=== PATIENT | female | born 1985 | race Caucasian/White ===

== ENCOUNTER 2022-11-23 13:55 | Emergency (ER) | payer OTHER ==
--- OUTSIDE RECORDS SUMMARY | 2022-11-23 14:00 | XMS REPORT | Continuity of Care Document ---
:1985 Author Organization [facility] t Address [address] [place] [address] Care Team Providers Name Role Phone Pcp, Patient Does Not Have A Primary Care Physician [phone] Luis Vernon Attending Clinician Unavailable Yovana Velazquez Attending Clinician Unavailable Katrin Reynolds Attending Clinician Unavailable Ekwo, Naty Attending Clinician Unavailable [facility] Attending Clinician Unavailable Unknown, Attending Attending Clinician Unavailable EbrahiKian Myles Attending Clinician KIAN JIMENEZ Attending Clinician Unavailable Doctor Unassigned, Landrum Attending Clinician Unavailable ARLENE BASHIR Attending Clinician Unavailable HERNANDO DELONG Attending Clinician Unavailable Hernando Espitia Attending Clinician Provider, [facility] Attending Clinician Unavailable Berny Mcclellan Attending Clinician [phone] BERNY MITCHELL Attending Clinician Unavailable King MARCEL MD, Sd Sequeira Attending Clinician CHRISSIE UPTON Attending Clinician Unavailable Chrissie Looney Attending Clinician CHIP QUAN Attending Clinician Unavailable Ekwo, Naty Admitting Clinician Unavailable Payers Payer Name Policy Type Policy Number Effective Date Expiration Date Martha Oliva [id number] 2020 [facility] 00:00:00 [facility] Problems Condition Condition Condition Status Onset Resolution Last Treating Co mments Source Name Details Category Date Date Treatment Clinician Date [id number] Seasonal Problem Comm on allergies [facility] [id number] Depression Problem Co mmon with [facility] anxiety [facility] [id number] Chronic Problem Common fatigue [facility] [id number] Vitamin D Problem Comm on deficiency [facility] No known No known Disease Unive rs active active ity of problems problems [facility] Allergies, Adverse Reactions, Alerts Allergy Allergy Status Severity Reaction(s) Onset Inactive Treating Comm ents Source Name Type Date Date Clinician No Known DA Active U 2019-05 [facility] No Known DA Active U 2019-05 [facility]ie 06-17 [facility] NO KNOWN Drug Active Univers ALLERGIE Class ity of S [facility] Social History Social Habit Start Date Stop Date Quantity Comments Source History of Tobacco Common [facility] - Use [facility] Gender identity [facility] Exposure to 2022-09-11 2022-09-21 Not sure [facility] SARS-CoV-2 (event) 00:00:00 14:12:00 [facility] Tobacco use and 2022-04-24 2022-04-24 Smokeless Universit y of exposure 00:00:00 00:00:00 tobacco non-user [facility] History of Social 2019-07-29 2019-07-[address] function 00:00:00 00:00:00 Hospital Sex Assigned At [birth year] [facility] 00:00:00 00:00:00 Hospital Smoking Status Start Date Stop Date Source Tobacco smoking consumption Univ [facility] Never smoked tobacco [facility] Medications Ordered Filled Start Stop Current Ordering Indication Dosage Frequency Signature Comments Components Source Medication Medication Date Date Medication? Clinician (SIG) Name Name dexamethaso 2022- No [id number] 10mg Univers ne 09-21 ity of (DECADRON 21:00: 19:57 [place] PHOSPHATE) 00 :00 Medical injection Branch 10 mg dexamethaso 2022- No [id number] 10mg 10 mg, Univers ne 09-21 Intramuscu ity of (DECADRON 21:00: 19:57 lar, ONCE, [place] PHOSPHATE) 00 :00 1 dose, On Med ical injection Carrie Branch 10 mg 09/21/22 at 1600, Routine ketorolac 2022- No [id number] 30mg Un jamin (TORADOL) 09-21 ity of injection 20:45: 19:58 [place] 30 mg 00 :00 Medical Branch ketorolac 2022- No [id number] 30mg 30 mg, Univers (TORADOL) 09-21 Intramuscu ity of injection 20:45: 19:58 lar, ONCE, [place] 30 mg 00 :00 1 dose, On Medical Carrie Branch 09/21/22 at 1545, Routine methocarbam 2022- Yes [id number] 750mg Take 1 Univers oL 09-21-08 tablet by ity of (ROBAXIN-75 00:00: 04:59 [place] 4 [place] 750 mg 00 :00 (four) Medical tablet times Branch daily for 10 days. meloxicam 2022- Yes [id number] 15mg Take 1 Univers (MOBIC) 15 09-2105 tablet by ity of mg tablet 00:00: 04:59 mouth in Jagdish as 00 :00 the Medical morning Branch for 7 days. ketorolac 2022- No [id number] 30mg Univers (TORADOL) 06-20 ity of injection 23:52: 23:55 [place] 30 mg 00 :00 Medical Branch ketorolac 2022- No [id number] 30mg 30 mg, Univers (TORADOL) 06-20 Intramuscu it y of injection 23:52: 23:55 lar, ONCE, [place] 30 mg 00 :00 1 dose, On Medical Tue Branch 06/20/22 at 1800, Routine methylPREDN 2022-0 Yes [id number] follow Univers ISolone 06-20 [id number] package ity of (MEDROL, 00:00: directions Jagdish as ABEL,) 4 mg 00 Medical tablets Branch methylPREDN 2023-0 Yes [id number] follow Univers ISolone 06-20 [id number] package ity of (MEDROL, 00:00: directions Jagdish as ABEL,) 4 mg 00 Medical tablets Branch methylPREDN 2023-0 Yes [id number] follow Univers ISolone 06-20 [id number] package ity of (MEDROL, 00:00: directions Jagdish as ABEL,) 4 mg 00 Medical tablets Branch methylPREDN 2023-0 Yes [id number] follow Univers ISolone 06-20 [id number] package ity of (MEDROL, 00:00: directions Jagdish as ABEL,) 4 mg 00 Medical tablets Branch methylPREDN 2023-0 Yes [id number] follow Univers ISolone 06-20 [id number] package ity of (MEDROL, 00:00: directions Jagdish as ABEL,) 4 mg 00 Medical tablets Branch methylPREDN 2021-1 Yes [id number] Take by [facility] ISolone 06-24 mouth ity of (MEDROL, 00:00: SEE-INSTRU Jagdish as ABEL,) 4 mg 00 CTIONS. Medica l tablets follow Branch package directions methylPREDN 2021-1 Yes [id number] Take by [facility] ISolone 06-24 mouth ity of (MEDROL, 00:00: SEE-INSTRU Jagdish as ABEL,) 4 mg 00 CTIONS. Medica l tablets follow Branch package directions methylPREDN 2021-1 Yes [id number] Take by [facility] ISolone 28 mouth ity of (MEDROL, 00:00: SEE-INSTRU Jagdish as ABEL,) 4 mg 00 CTIONS. Medica l tablets follow Branch package directions methylPREDN 2021-1 Yes [id number] Take by [facility] ISolone 28 mouth ity of (MEDROL, 00:00: SEE-INSTRU Jagdish as ABEL,) 4 mg 00 CTIONS. Medica l tablets follow Branch package directions methylPREDN 2021-1 Yes [id number] Take by Univers ISolone 28 mouth ity of (MEDROL, 00:00: SEE-INSTRU Jagdish as ABEL,) 4 mg 00 CTIONS. Medica l tablets follow Branch package directions methylPREDN 2021-1 Yes [id number] Take by [facility] ISolone 1-28 mouth ity of (MEDROL, 00:00: SEE-INSTRU Jagdish as ABEL,) 4 mg 00 CTIONS. Medica l tablets follow Branch package directions methylPREDN 2021-05 Yes [id number] Take by Univers ISolone 1-28 mouth ity of (MEDROL, 00:00: SEE-INSTRU Jagdish as ABEL,) 4 mg 00 CTIONS. Medica l tablets follow Branch package directions methylPREDN 2021-05 Yes [id number] Take by Univers ISolone 28 mouth ity of (MEDROL, 00:00: SEE-INSTRU Jagdish as ABEL,) 4 mg 00 CTIONS. Medica l tablets follow Branch package directions methylPREDN 2021-05 Yes [id number] Take by Univers ISolone 1-28 mouth ity of (MEDROL, 00:00: SEE-INSTRU Jagdish as ABEL,) 4 mg 00 CTIONS. Medica l tablets follow Branch package directions cyclobenzap 2021-05- No [id number] 5mg Take 1 Univers rine 5 mg -28 12-04 tablet by ity of tablet 00:00: 05:59 mouth 3 [place] 00 :00 (three) Medical times Branch daily as needed for Muscle Spasms for up to 5 days. cyclobenzap 2021-05- No [id number] 5mg Take 1 Univers rine 5 mg 1-28 12-04 tablet by ity of tablet 00:00: 05:59 mouth 3 [place] 00 :00 (three) Medical times Branch daily as needed for Muscle Spasms for up to 5 days. cyclobenzap 2021-05- No [id number] 5mg Take 1 Univers rine 5 mg -28 12-04 tablet by ity of tablet 00:00: 05:59 mouth 3 [place] 00 :00 (three) Medical times Branch daily as needed for Muscle Spasms for up to 5 days. venlafaxine 2021-05 Yes TAKE ONE Un jamin XR 37.5 mg 0-18 (1) ity of 24 hr 00:00: CAPSULE(S) [place] capsule 00 BY MOUTH Medical EVERY Branch MORNING WITH FOOD. venlafaxine 2021-05 Yes TAKE ONE Un jamin XR 37.5 mg 0-18 (1) ity of 24 hr 00:00: CAPSULE(S) [place] capsule 00 BY MOUTH Medical EVERY Branch MORNING WITH FOOD. venlafaxine 2021-05 Yes TAKE ONE Un jamin XR 37.5 mg 0-18 (1) ity of 24 hr 00:00: CAPSULE(S) [place] capsule 00 BY MOUTH Medical EVERY Branch MORNING WITH FOOD. venlafaxine 2021-05 Yes TAKE ONE Un jamin XR 37.5 mg 0-18 (1) ity of 24 hr 00:00: CAPSULE(S) [place] capsule 00 BY MOUTH Medical EVERY Branch MORNING WITH FOOD. venlafaxine 2021-05 Yes TAKE ONE Un jamin XR 37.5 mg 0-18 (1) ity of 24 hr 00:00: CAPSULE(S) [place] capsule 00 BY MOUTH Medical EVERY Branch MORNING WITH FOOD. venlafaxine 2021-05 Yes TAKE ONE Un jamin XR 37.5 mg 0-18 (1) ity of 24 hr 00:00: CAPSULE(S) [place] capsule 00 BY MOUTH Medical EVERY Branch MORNING WITH FOOD. venlafaxine 2021-05 Yes TAKE ONE Un jamin XR 37.5 mg 0-18 (1) ity of 24 hr 00:00: CAPSULE(S) [place] capsule 00 BY MOUTH Medical EVERY Branch MORNING WITH FOOD. venlafaxine 2021-05 Yes TAKE ONE Un jamin XR 37.5 mg 0-18 (1) ity of 24 hr 00:00: CAPSULE(S) [place] capsule 00 BY MOUTH Medical EVERY Branch MORNING WITH FOOD. venlafaxine 2021-05 Yes TAKE ONE Un jamin XR 37.5 mg 0-18 (1) ity of 24 hr 00:00: CAPSULE(S) [place] capsule 00 BY MOUTH Medical EVERY Branch MORNING WITH FOOD. buPROPion 2021-05 Yes 300mg Take 300 Uni vers XL 300 mg 0-16 mg by ity of 24 hr 00:00: mouth [place] tablet 00 every Medical morning. Branch buPROPion 2021-05 Yes 300mg Take 300 Uni vers XL 300 mg 0-16 mg by ity of 24 hr 00:00: mouth [place] tablet 00 every Medical morning. Branch buPROPion 2021-05 Yes 300mg Take 300 Uni vers XL 300 mg 0-16 mg by ity of 24 hr 00:00: mouth [place] tablet 00 every Medical morning. Branch buPROPion 2021-05 Yes 300mg Take 300 Uni vers XL 300 mg 0-16 mg by ity of 24 hr 00:00: mouth [place] tablet 00 every Medical morning. Branch buPROPion 2021-05 Yes 300mg Take 300 Uni vers XL 300 mg 0-16 mg by ity of 24 hr 00:00: mouth [place] tablet 00 every Medical morning. Branch buPROPion 2021-05 Yes 300mg Take 300 Uni vers XL 300 mg 0-16 mg by ity of 24 hr 00:00: mouth [place] tablet 00 every Medical morning. Branch buPROPion 2021-05 Yes 300mg Take 300 Uni vers XL 300 mg 0-16 mg by ity of 24 hr 00:00: mouth [place] tablet 00 every Medical morning. Branch buPROPion 2021-05 Yes 300mg Take 300 Uni vers XL 300 mg 0-16 mg by ity of 24 hr 00:00: mouth [place] tablet 00 every Medical morning. Branch buPROPion 2021-05 Yes 300mg Take 300 Uni vers XL 300 mg 0-16 mg by ity of 24 hr 00:00: mouth [place] tablet 00 every Medical morning. Branch buPROPion buPROPion No 1{table QD buPROPion HCl ER (XL) HCl ER (XL) 02-03 t_in_th HCl ER 300 MG 300 MG 00:00: e_morni (XL) 300 00 ng} MG buPROPion buPROPion No 1{table QD buPROPion HCl ER (XL) HCl ER (XL) 02-03 t_in_th HCl ER 300 MG 300 MG 00:00: e_morni (XL) 300 00 ng} MG buPROPion buPROPion No 1{table QD buPROPion HCl ER (XL) HCl ER (XL) 02-03 t_in_th HCl ER 300 MG 300 MG 00:00: e_morni (XL) 300 00 ng} MG cephALEXin No [id number] 500mg Take 1 Univers (KEFLEX) 5-25 06-05 capsule by ity of 500 mg 00:00: 04:59 mouth 4 [place] capsule 00 :00 (four) Medical times Branch daily for 10 days. buPROPion buPROPion No 1{table QD buPROPion HCl ER (XL) HCl ER (XL) 3-09 t_in_th HCl ER 150 MG 150 MG 00:00: e_morni (XL) 150 00 ng} MG buPROPion buPROPion 2021-0 No 1{table QD buPROPion HCl ER (XL) HCl ER (XL) 3-09 t_in_ HCl ER 150 MG 150 MG 00:00: e_morni (XL) 150 00 ng} MG doxycycline 2021-0 Yes [id number] 100mg Take 1 Univers monohydrate 1-13 capsule by it y of 100 mg 00:00: mouth 2 [place] capsule 00 (two) Medical times Branch daily. doxycycline 2021-0 Yes [id number] 100mg Take 1 Univers monohydrate 1-13 capsule by it y of 100 mg 00:00: mouth 2 [place] capsule 00 (two) Medical times Branch daily. doxycycline 2021-0 Yes [id number] 100mg Take 1 Univers monohydrate 1-13 capsule by it y of 100 mg 00:00: mouth 2 [place] capsule 00 (two) Medical times Branch daily. doxycycline 2021-0 Yes [id number] 100mg Take 1 Univers monohydrate 1-13 capsule by it y of 100 mg 00:00: mouth 2 [place] capsule 00 (two) Medical times Branch daily. doxycycline 2021-0 Yes [id number] 100mg Take 1 Univers monohydrate 1-13 capsule by it y of 100 mg 00:00: mouth 2 [place] capsule 00 (two) Medical times Branch daily. doxycycline 2-0 Yes [id number] 100mg Take 1 Univers monohydrate 1-13 capsule by it y of 100 mg 00:00: mouth 2 [place] capsule 00 (two) Medical times Branch daily. doxycycline 2022-0 Yes [id number] 100mg Take 1 Univers monohydrate 1-13 capsule by it y of 100 mg 00:00: mouth 2 [place] capsule 00 (two) Medical times Branch daily. doxycycline 2-0 Yes [id number] 100mg Take 1 Univers monohydrate 1-13 capsule by it y of 100 mg 00:00: mouth 2 [place] capsule 00 (two) Medical times Branch daily. doxycycline 2022-0 Yes [id number] 100mg Take 1 Univers monohydrate 1-13 capsule by it y of 100 mg 00:00: mouth 2 [place] capsule 00 (two) Medical times Branch daily. doxycycline 2022-0 Yes [id number] 100mg Take 1 Univers monohydrate 1-13 capsule by it y of 100 mg 00:00: mouth 2 [place] capsule 00 (two) Medical times Branch daily. doxycycline 2021-0 Yes [id number] 100mg Take 1 Univers monohydrate 1-13 capsule by it y of 100 mg 00:00: mouth 2 [place] capsule 00 (two) Medical times Branch daily. doxycycline 2021-0 Yes [id number] 100mg Take 1 Univers monohydrate 1-13 capsule by it y of 100 mg 00:00: mouth 2 [place] capsule 00 (two) Medical times Branch daily. doxycycline 2021-0 Yes [id number] 100mg Take 1 Univers monohydrate 1-13 capsule by it y of 100 mg 00:00: mouth 2 [place] capsule 00 (two) Medical times Branch daily. Methylpredn 2021- No [id number] 4mg Take 1 Univers isolone 4 -06-15 tablet by ity of mg tablet 00:00: 05:59 mouth [place] 00 :00 every 12 Medical (twelve) Branch hours for 5 days. cyclobenzap 2021- No [id number] 10mg Take 1 Univers rine 10 mg 8-17 06-09 tablet by ity of tablet 00:00: 00:00 mouth 3 [place] 00 :00 (three) Medical times Branch daily as needed for Muscle Spasms. Fluoxetine Fluoxetine No 1{capsu QD Fluoxetine 10 MG 10 MG le} 10 MG Escitalopra Escitalopra No 1{table QD Escitalopr m Oxalate m Oxalate t} am Oxalate 10 MG 10 MG 10 MG Escitalopra Escitalopra No 1{table QD Escitalopr m Oxalate m Oxalate t} am Oxalate 10 MG 10 MG 10 MG Lexapro 10 Lexapro 10 No QD Lexapro 10 MG MG MG Escitalopra Escitalopra No 1{table QD Escitalopr m Oxalate m Oxalate t} am Oxalate 10 MG 10 MG 10 MG Lexapro 10 Lexapro 10 No QD Lexapro 10 MG MG MG Escitalopra Escitalopra No 1{table QD Escitalopr m Oxalate m Oxalate t} am Oxalate 10 MG 10 MG 10 MG buPROPion buPROPion No buPROPion HCl ER (XL) HCl ER (XL) HCl ER 150 MG 150 MG (XL) 150 MG Lexapro 10 Lexapro 10 No QD Lexapro 10 MG MG MG Escitalopra Escitalopra No 1{table QD Escitalopr m Oxalate m Oxalate t} am Oxalate 10 MG 10 MG 10 MG Venlafaxine Venlafaxine No QD Venlafaxin HCl ER 37.5 HCl ER 37.5 e HCl ER MG MG 37.5 MG Lexapro 10 Lexapro 10 No QD Lexapro 10 MG MG MG buPROPion buPROPion No buPROPion HCl ER (XL) HCl ER (XL) HCl ER 150 MG 150 MG (XL) 150 MG Escitalopra Escitalopra No 1{table QD Escitalopr m Oxalate m Oxalate t} am Oxalate 10 MG 10 MG 10 MG Venlafaxine Venlafaxine No Venlafaxin HCl ER 37.5 HCl ER 37.5 e HCl ER MG MG 37.5 MG Lexapro 10 Lexapro 10 No QD Lexapro 10 MG MG MG buPROPion buPROPion No buPROPion HCl ER (XL) HCl ER (XL) HCl ER 150 MG 150 MG (XL) 150 MG Venlafaxine Venlafaxine No 1{capsu QD Venlafaxin HCl ER 37.5 HCl ER 37.5 le_with e HCl ER MG MG _food} 37.5 MG Escitalopra Escitalopra No 1{table QD Escitalopr m Oxalate m Oxalate t} am Oxalate 10 MG 10 MG 10 MG buPROPion buPROPion No buPROPion HCl ER (XL) HCl ER (XL) HCl ER 150 MG 150 MG (XL) 150 MG Lexapro 10 Lexapro 10 No QD Lexapro 10 MG MG MG Vital Signs Vital Name Observation Time Observation Value Comments Source Systolic blood 2022-09-21 19:34:00 134 [facility]Hg[facility] Diastolic blood 2022-09-21 19:34:00 85 mm[Hg] [facility] [place] Heart rate 2022-09-21 19:34:00 81 /min [facility] Body temperature 2022-09-21 19:34:00 36.5 Joanna [facility] Respiratory rate 2022-09-21 19:34:00 17 /min [facility] Body height 2022-09-21 19:34:00 152.4 cm [facility] Body weight 2022-09-21 19:34:00 67.331 kg [facility] [place] [facility] BMI 2022-09-21 19:34:00 28.99 kg/m2 [facility] [place] [facility] Oxygen saturation in 2022-09-21 19:34:00 99 /min University of Arterial blood by [facility] Pulse oximetry Branch Systolic blood 2022-06-20 23:31:00 132 mm[Hg] Univer sity of pressure [place] [facility] Diastolic blood 2022-06-20 23:31:00 84 mm[Hg] Unive rsity of pressure [place] [facility] Heart rate 2022-06-20 23:31:00 73 /min [facility] [place] [facility] Body temperature 2022-06-20 23:31:00 36.39 Joanna [facility] [place] [facility] Respiratory rate 2022-06-20 23:31:00 14 /min [facility] [place] [facility] Body height 2022-06-20 23:31:00 152.4 cm [facility] [place] [facility] Body weight 2022-06-20 23:31:00 69.655 kg [facility] [place] [facility] BMI 2022-06-20 23:31:00 29.99 kg/m2 [facility] [place] [facility] Oxygen saturation in 2022-06-20 23:31:00 99 /min University of Arterial blood by [facility] Pulse oximetry Branch Systolic blood 2022-04-24 18:45:00 117 mm[Hg] Univer sity of pressure [place] [facility] Diastolic blood 2022-04-24 18:45:00 79 mm[Hg] Unive rsity of pressure [place] [facility] Heart rate 2022-04-24 18:45:00 72 /min [facility] [place] [facility] Body temperature 2022-04-24 18:45:00 37.17 Joanna [facility] [place] [facility] Respiratory rate 2022-04-24 18:45:00 18 /min [facility] [place] [facility] Body height 2022-04-24 18:45:00 152.4 cm [facility] [place] [facility] Body weight 2022-04-24 18:45:00 68.357 kg [facility] [place] [facility] BMI 2022-04-24 18:45:00 29.43 kg/m2 [facility] [place] [facility] Oxygen saturation in 2022-04-24 18:45:00 97 /min University of Arterial blood by [facility] Pulse oximetry Branch Systolic blood 2021-10-19 20:41:00 103 mm[Hg] Univer sity of pressure [facility] Diastolic blood 2021-10-19 20:41:00 70 mm[Hg] Unive rsity of pressure [facility] Heart rate 2021-10-19 20:41:00 80 /min Universi ty of [facility] Body temperature 2021-10-19 20:41:00 35.67 Joanna Univ ersity of [facility] Respiratory rate 2021-10-19 20:41:00 18 /min Univ ersity of [facility] Body height 2021-10-19 20:41:00 152.4 cm Universi ty of [facility] Body weight 2021-10-19 20:41:00 68.238 kg Universi ty [facility] BMI 2021-10-19 20:41:00 29.38 kg/m2 Universi ty [facility] Oxygen saturation in 2021-10-19 20:41:00 97 /min University Arterial blood by [facility] Pulse oximetry Branch height 2021-08-03 11:20:00 60 [in_i] [facility] weight 2021-08-03 11:20:00 145 [lb_av] [facility] bmi 2021-08-03 11:20:00 28.32 kg/m2 [facility] Systolic blood 2021-06-09 20:04:00 93 mm[Hg] Univer sity of [facility] Diastolic blood 2021-06-09 20:04:00 65 mm[Hg] Unive rsity of pressure [facility] Heart rate 2021-06-09 20:01:00 101 /min Universi ty of [facility] Body temperature 2021-06-09 20:01:00 36.5 Joanna Univ ersity of [facility] Respiratory rate 2021-06-09 20:01:00 16 /min Univ ersity of [facility] Body height 2021-06-09 20:01:00 152.4 cm Universi ty of [facility] Body weight 2021-06-09 20:01:00 69.57 kg [facility] BMI 2021-06-09 20:01:00 29.95 kg/m2 [facility] Oxygen saturation in 2021-06-09 20:01:00 97 /min [facility] Arterial blood by [facility] Pulse oximetry Branch Procedures Procedure Date / Time Performed Performing Clinician Mckenna VENEGAS PATIENT FINANCIAL 2022-09-21 19:13:27 Doctor Unassigned, No [facility] POLICY Name [facility] XR HAND 3+ VW LEFT 2022-04-24 19:15:00 Berny Mitchell [facility] ASSIGNMENT OF BENEFITS 2022-04-24 16:57:32 Doctor Unassigned, No [facility] Name [facility] [id number] 2020-04-18 00:00:00 EKWTE [facility] [id number] 2020-04-18 00:00:00 EKWTE [facility] [id number] 2020-04-18 00:00:00 EKWTE [facility] [id number] 2020-04-18 00:00:00 MANVI.[email or web address] [facility] [id number] 2020-04-18 00:00:00 MANVI.02 [facility] Plan of Care Planned Activity Planned Date Details Comments Source Future Scheduled 2022-11-12 INFLUENZA VACCINE [facility] Test 00:28:34 [code = INFLUENZA VACCINE] Future Scheduled 2022-11-12 COVID-19 VACCINE [facility] 00:28:34 (#1) [code = COVID-19 VACCINE (#1)] Future Scheduled 2022-11-12 Screening for [facility] Test 00:28:34 malignant neoplasm of cervix (procedure) [code = 114795586] Encounters Start End Encounter Admission Attending Care Care Encounter Source Date/Time Date/Time Type Type Clinicians Facility Department ID 2022-10-04 Outpatient Vernon, [facility] [id number] Common 10:32:02 [facility] [address] [facility] 2022-08-28 Outpatient Vernon, [facility] [id number] Common 16:22:01 [facility] [id number] [facility] 2022-08-24 Outpatient Vernon, [facility] [id number] Common 14:22:00 [facility] [id number] [facility] 2022-07-12 Outpatient Caroline, [facility]ML[facility] ST[facility] [id number] Common 15:33:01 Yovana 75813 [facility] 2022-07-05 Outpatient Caroline, STLMLC STL[facility]C [id number] Common 11:52:01 Yovana 12743 [facility] 2021-12-07 Outpatient Reynolds, Na STLMLC STLMLC [id number] 2 Common 10:39:02 [facility] 2021-08-01 Outpatient Reynolds, Na STLMLC STLMLC [id number] 2 Common 08:44:01 [facility] 2021-06-22 Outpatient Reynolds, Na STLMLC STLMLC [id number] 2 Common 13:35:07 [facility] 2021-06-22 Outpatient Reynolds, Na STLMLC STLMLC [id number] 2 Common 13:05:48 70571 [facility] 2020-05-06 Inpatient EL Ekwo, [facility] LD [id number] [facility] 21:47:00 [facility]y [facility] 2020-04-17 Inpatient Ekwo, [facility] DEVAUGHN [id number] [facility] 14:48:00 [facility]y [facility] 2022-11-23 2022-11-23 Nurse Nurse, [facility] [id number] [facility] 13:30:00 13:30:00 Visit Unknown, Attending HEALTH [id number] Kian Rogel [id number] [place] NOÉ?BLEA [id number] Ok cecilia [address] MEDICAL OFFICE BUILDING 2022-11-23 2022-11-23 Outpatient THEO ONOFRE [facility] [id number] Univers 13:30:00 13:27:48 KIAN reyes [facility] 2022-09-21 2022-09-21 Urgent Kian Jimenez [facility] [id number] Univers 14:00:00 14:20:00 Care Unknown, Attending HEALTH [id number] ity of [place] [id number] Jagdish as NOÉ?BLEA [id number] [address] MEDICAL OFFICE BUILDING 2022-09-21 2022-09-21 [facility] [id number] Univers 14:00:00 14:00:00 KIAN [facility] 2022-09-21 2022-09-21 Orders Doctor CANDY [id number] Univers 00:00:00 00:00:00 Only Unassigned, MEÑO 350..13.[address] [facility] 4..7.2.686 Jagdish as [id number] [address] 2022-07-19 2022-07-19 [facility] [id number] Univers 15:15:00 15:15:00 ARLENE ity [facility] 2022-07-05 2022-07-05 (TEL) STLMLC STLMLC [id number] Co mmon 00:00:00 00:00:00 [facility] 2022-06-22 2022-06-22 (TEL) STLMLC STLMLC [id number] Co mmon 00:00:00 00:00:00 [facility] 2022-06-20 2022-06-20 Outpatient R SINDI [facility] [id number] Univers 17:20:00 18:05:48 REENU ity [facility] 2022-06-20 2022-06-20 Urgent Hernando Delong [facility] ..840.11 [id number] Univers 17:20:00 18:05:48 Care Unknown, Attending HEALTH 350.1.13.[address] [facility] 4.2.7.2.686 Jagdish as NOÉ?BLEA [phone] [address] MEDICAL OFFICE [facility] 2022-06-20 2022-06-20 Letter Sindi [facility] ..[id number] Univers 00:00:00 00:00:00 (Out) Reenu HEALTH 350.1.13.10 it y [facility] 4.2.7.2.686 Jagdish as NOÉ?BLEA [phone] [facility] [address] MEDICAL OFFICE [facility] 2022-05-04 2022-05-04 Telephone Provider, [facility] 1.2.840.114 [id number] Univers 00:00:00 00:00:00 Ang Db HEALTH 350.1.13.10 it y of Urgent Care [place] 4.2.7.2.686 [place] NOÉ?BLEA [phone] [facility] [address] [facility] OFFICE [facility] 2022-04-24 2022-04-24 Hospital Stephen [facility] 1.2.840.114 [id number] Univers 12:57:59 23:59:00 Encounter Berny Rob HEALTH 350.1.13.10 ity of [place] 4.2.7.2.686 Jagdish as NOÉ?BLEA [phone] [facility] [address] [facility] OFFICE [facility] 2022-04-24 2022-04-24 Outpatient R STEPHEN [facility] [id number] Univers 12:57:59 23:59:00 KENSHEELAA ity of [facility] 2022-04-24 2022-04-24 Urgent Berny Mitchell [facility] 1.2. 840.114 [id number] Univers 11:00:00 13:28:36 Care Unknown, Attending HEALTH 350.1.13.10 ity of [place] 4.2.7.2.686 Jagdish as NOÉ?BLEA [phone] [address] MEDICAL OFFICE [facility] 2022-04-24 2022-04-24 Orders Doctor CANDY 1.2.840.114 [id number] Univers 00:00:00 00:00:00 Only Unassigned, MEÑO 350.1.13.10 ity of [facility] 4.2.7.2.686 Jagdish as [phone] [address] 2022-04-24 2022-04-24 Letter Stephen [facility] 1.2.245.964 [id number] Univers 00:00:00 00:00:00 (Out) Berny Darron HEALTH 350.1.13.10 ity of [place] 4.2.7.2.686 Jagdish as NOÉ?BLEA [phone] [address] MEDICAL OFFICE BUILDING 2022-02-03 2022-02-03 OFFICE STLMLC STLC [id number] Co mmon 00:00:00 00:00:00 VISIT EST Spir it PT LEVEL 3 - [facility] 2022-02-01 2022-02-01 (TEL) [facility] [id number] Co mmon 00:00:00 00:00:00 [facility] 2021-10-19 2021-10-19 Urgent Barbara [facility] 1.2.840.114 [id number] Univers 15:40:00 16:00:00 Care [facility] 350..13.10 it y of [place] 4.2.7.2.686 Jagdish as NOÉ?BLEA [phone] [address] MEDICAL OFFICE [facility] 2021-10-19 2021-10-19 Outpatient R BARBARA [facility] [id number] Univers 15:40:00 15:40:00 RANIA ity [facility] 2021-08-04 2021-08-04 (TEL) [facility] [id number] Co mmon 00:00:00 00:00:00 [facility] 2021-08-03 2021-08-03 [facility] [id number] Co mmon 00:00:00 00:00:00 VISIT EST Spir it PT LEVEL 3 [facility] 2021-06-29 2021-06-29 (TEL) STLC STLMLC [id number] Co mmon 00:00:00 00:00:00 [facility] 2021-06-10 2021-06-10 Telephone Sd Heard [facility] 1.2.840.114 [id number] Univers 00:00:00 00:00:00 C HEALTH 350.1.13.10 it y of [place] 4.2.7.2.686 Jagdish as NOÉ?BLEA [phone] [place] [address] MEDICAL OFFICE [facility] 2021-06-09 2021-06-09 Urgent Sd Heard [facility] 1.2.840.114 [id number] Univers 14:00:00 14:26:40 Care Truman Jimenezia HEALTH 350.1.13.10 ity of [place] 4.2.7.2.686 Jagdish as NOÉ?BLEA [phone] [facility] [address] MEDICAL OFFICE [facility] 2021-06-09 2021-06-09 Outpatient R BARBARA [facility] [id number] Univers 14:00:00 14:26:40 [facility] 2021-06-09 2021-06-09 Outpatient R BARBARA [facility] [id number] Univers 14:00:00 14:00:00 [facility] 2021-06-09 2021-06-09 Letter Sd Heard [facility] 1.2.840.114 [id number] Univers 00:00:00 00:00:00 (Out) C HEALTH 350.1.13.10 it y of [facility] 4.2.7.2.686 Jagdish as NOÉ?BLEA [phone] [address] OFFICE [facility] 2021-01-11 2021-01-11 Outpatient R WON [facility] [id number] Univers 15:30:00 15:30:00 CHRISSIE ity [facility] 2021-01-11 2021-01-11 Dionte Upton [facility] [id number] [id number] Univers 00:00:00 00:00:00 [facility] 350.1.13.10 it y of [place] 4.2.7.2.686 Jagdish as Noé?Blea [phone] [facility] [address] Medical Office [facility] 2021-01-11 2021-01-11 Orders Doctor GUPTA 1.2.840.114 [id number] Univers 00:00:00 00:00:00 Only Unassigned, MEÑO 350.1.13.10 ity of [facility] 4.2.7.2.686 Jagdish as [phone] [address] 2021-01-11 2021-01-[address] [facility] 1.2.840.114 [id number] [facility] 00:00:00 00:00:00 (Out) 15MinutesNOW 350.1.13.10 it y of [place] 4.2.7.2.686 Jagdish as Noé?Blea [phone] Ok cecilia philip [address] [place] [address] Medical Office [facility] 2020-11-25 2020-11-25 Outpatient STLC STLC [id number] Common 00:00:00 00:00:00 [facility] 2020-10-14 2020-10-14 [facility] [id number] Common 00:00:00 00:00:00 [facility] 2019-07-29 2019-07-29 [facility] [id number] [address] [place] [address] 00:00:00 00:00:00 CHIP Chapin Method i st Results Test Description Test Time Test Comments Results Result Comments Source PLACENTA THIRD TRIMESTER 2020-04-26 11:45:00 Test Item Value Reference Range Interpretation Comme nts PLACENTA RUN DATE: THIRD 05/27/20 [facility] y PAGE 1 RUN TIME: 1323 Specimen Inquiry RUN USER: INTERFACE TRIMESTER PATIENT: (test code EDWIGE HART 312 LOC: ANNALISA U #: [id number] AGE/SX: 35/F ROOM: [facility] RE04/17/20REG = PLACIII) DR: Naty Mckeon MD : BED: A DIS: 04/19/20 STATUS: DIS IN TLOC: SPEC #: [id number] RECD: 0 STATUS: YEN REGermain #: [id number] YOVANI: 04/19/20- DR: Naty Mckeon MD ENTERED: 04/19/20 SP TYPE: PLACIII OTHR DR: ORDERED: LEVEL V SURGICA CODES: [id number] - PLACENTA, NOS PROCEDURES: LEVEL V SURG ICA (Incomplete) TISSUES: PLACENTA, NOS - PLACENTA CLINICAL HISTORY 35 year old, 37.3 weeks, L1, vag inal delivery, gestational diabetes, VSD (wpd) FINAL DIAGNOSIS Placenta, osborn gestatio n (37.3 weeks): - third trimester villous architecture - mild increase in perivillous fibrinoid, patch y - umbilical cord: insertion 5 cm from margin, 3- vessel, 45 cm length - placental weight: actual 395 gms/expected mean 467 gms (25-50th percentile) CPT Code: 93505 cds/wpd GROSS DESCRIPTION The specim en was received in a container, labeled with the patient's name, unit number and designated "placenta". The following attributes are observed: Cord insertion: 5 cm from margin Cord length: 45 cm (one segment d etached) Number of vessels: 3 Cord color: Marino- white Other cord findings: None surface findings: Blue-purple, wrinkled, glistening Vasculature: Unremarkable blood vasculature Membranes ruptur e site: 10 cm to margin Membrane color: [place]-pink Other membrane findings: Semi-translucent The trimmed placental weight: 395 gm Disk measurement: 18 x 17 x 4 cm in greatest dimension Accessory lobes: None CONTINUED ON NEXT P AGE RUN DATE: 05/27/20 [facility] PAGE 2 RUN TIME: 1323 Specimen Inquiry RUN USER: INTERFACE SPEC #: [id number] PATIENT: EDWIGE HART #[id number] (Continued) GROSS DESCRIPTION (Continued ) Maternal surface: Lobulated and focally disrupted, completeness cannot be determined Parenchyma: Red-b rown and spongy Parenchyma lesions: None Cassettes: A1 through A4 ana/wpd 04/19/20 RE1 and RE2 surface, RE3 membranes. ana/ willy 04/26/20 Signed John Westfall Brandon 04/26/20 1145 END OF REPORT [id number] 16:10:00 Test Item Value Reference Range Interpretation Comments GLUBED (test code = GLUBED) 80 mg/dL 65-110 N [id number] 16:10:00 Test Item Value Reference Range Interpretation Comments GLUBED (test code = GLUBED) 71 mg/dL 65-110 N RUPTURE OF [id number] 08:07:00 Test Item Value Reference Range Interpretation Comments RUPTURE OF MEMBRANES (test code = RUPTURED ROM) HGB [id number] 07:56:00 Test Item Value Reference Range Interpretation Comments HEMOGLOBIN (test code = 8.5 g/dL 10.7-13.9 L Resu lts verified by HGB) repeat analysis HEMATOCRIT (test code = 26.0 % 32.1-42.1 L Resu lts verified by HCT) repeat analysis [id number] 18:52:00 Test Item Value Reference Range Interpretation Comments GLUCOSE (test code = GLU) 140 mg/dL 65-110 H AG HEPATITIS B [id number] 17:35:00 Test Item Value Reference Range Interpretation Comments AG HEPATITIS B SURFACE (test code NONREACTIVE NONREACTIVE = HBSAG) IS CONSENT FORM SIGNED FOR HIV TESTING? YAB HEPATITIS C [id number] 17:35:00 Test Item Value Reference Range Interpretation Comments AB HEPATITIS C (test code = NONREACTIVE NONREACTIVE HCVAB) SIGNAL TO CUTOFF (test code = 0.06 <0.80 N CUTOFF) IS CONSENT FORM SIGNED FOR HIV TESTING? YAB [id number] 17:35:00 Test Item Value Reference Range Interpretation Comments AB TREPONEMA (test code = TREPAB) NONREACTIVE NONREACTIVE IS CONSENT FORM SIGNED FOR HIV TESTING? YAB HIV 1 17:35:00 Test Item Value Reference Range Interpretation Comments AB HIV 1 2 (test NONREACTIVE NONREACTIVE Done by [facility] code = [id number]) 4th Gen HIV Ag/Ab Combo Screen IS CONSENT FORM SIGNED FOR HIV TESTING? YAG HEPATITIS B [id number] 17:18:00 Test Item Value Reference Range Interpretation Comments AG HEPATITIS B SURFACE (test code NONREACTIVE NONREACTIVE = HBSAG) IS CONSENT FORM SIGNED FOR HIV TESTING? YAB HEPATITIS C [id number] 17:18:00 Test Item Value Reference Range Interpretation Comments AB HEPATITIS C (test code = HCVAB) NONREACTIVE SIGNAL TO CUTOFF (test code = CUTOFF) <0.80 IS CONSENT FORM SIGNED FOR HIV TESTING? YAB [id number] 17:18:00 Test Item Value Reference Range Interpretation Comments AB TREPONEMA (test code = TREPAB) NONREACTIVE NONREACTIVE IS CONSENT FORM SIGNED FOR HIV TESTING? YAB HIV 1 17:18:00 Test Item Value Reference Range Interpretation Comments AB HIV 1 2 (test code = [id number]) NONREACTIVE IS CONSENT FORM SIGNED FOR HIV TESTING? YCBC W/AUTO [id number] 16:34:00 Test Item Value Reference Range Interpretation Comments WHITE BLOOD CELL (test code = WBC) 11.8 K/mm3 6.6-12.1 N RED BLOOD CELL (test code = RBC) 3.82 M/mm3 3.45-5.01 N HEMOGLOBIN (test code = HGB) 12.0 g/dL 10.7-13.9 N HEMATOCRIT (test code = HCT) 35.8 % 32.1-42.1 N MEAN CELL VOLUME (test code = MCV) 94 fL 84.1-94.8 N MEAN CELL HGB (test code = MCH) 31.4 pg 27-35 N MEAN CELL HGB CONCETRATION (test 33.5 gm/dL 32.2-34.1 N code = MCHC) RED CELL DISTRIBUTION WIDTH (test 13.4 % 12.4-16.5 N code = RDW) PLATELET COUNT (test code = PLT) 164 K/mm3 133-385 N MEAN PLATELET VOLUME (test code = 11.2 fl 9.1-12.7 N MPV) NEUTROPHIL % (test code = NT%) 75.1 % 56.5-79.4 N LYMPHOCYTE % (test code = LY%) 17.9 % 14.3-34.3 N MONOCYTE % (test code = MO%) 4.6 % 5.1-10.4 L EOSINOPHIL % (test code = EO%) 1.2 % 0.1-3.0 N BASOPHIL % (test code = BA%) 0.3 % 0.1-1.0 N NEUTROPHIL # (test code = NT#) 8.9 K/mm3 LYMPHOCYTE # (test code = LY#) 2.1 K/mm3 MONOCYTE # (test code = MO#) 0.5 K/mm3 EOSINOPHIL # (test code = EO#) 0.14 K/mm3 BASOPHIL # (test code = BA#) 0.0 K/mm3 RBC MORPHOLOGY REQUIRED (test code NORMAL NORMAL = RBCM) PLATELET MORPHOLOGY REQUIRED (test NORMAL NORMAL code = PLTMR) COVID 19 Asymptomatic IH [id number] 15:50:00 Test Item Value Reference Range Interpretation Comments COVID 19 NEGATIVE NEGATIVE This test has b een Asymptomatic IH AG authorize d only for the (test code = detection ofpro teins from COVNONPUIAG) SARS-CoV-2, not for any other viruses orpathogens. Ne gative results should be treated as presumptive andconfirmed wi th a molecular assay , if necessary for patientmanageme nt. Negative result s do not rule out COVID- 19 andshould not b e used as the sole basis for treatment orpat ient management deci sions, including infec tion controldecision s. Negative result s should be considered i n thecontext of a patient's recent exposure s, history and thepresence of clinical signs and symptoms consis tent withCOVID-19. T his test has not been FD A cleared or approved; th e test hasbeen authori zed by FDA under an Emerge ncy Use Authorization(E UA) for use by laborato jailene certified under the CLIA thatmeet the re quirements to perform mode rate, high or waivedcomple xity tests. This shamir t is authorized for use at thePoint of Car e (POC), i.e., in patien t care settingsoperati ng under a CLIA Certificat e of Waiver, Certifi alba ofCompliance, o r Certificate of Accreditation. This test is only authori jarvis for the duration of thedeclaration that circumstances e xist justifying theauthorizatio n of emergency use o f in vitro diagnostic test sfor detection and/o r diagnosis of CO VID-19 under Mzdhigk91 4(b)(1) of the Act, 21 U.S .C. 360bbb-3(b)(1), unless theauthorizatio n is terminated or r evoked sooner. Notes Date/Time Note Provider Source 2020-04-19 11:24:00-00:00 [facility] OB Disch REPORT#:[id number] REPORT STATUS: Signed DATE:04/19/20 TIME: 1123 PATIENT: EDWIGE HART UNIT #: [id number] ROOM/BED: [address] : [address] AGE: 35 SEX: F ATTEND: Luis Antonio Mckeon pe, MD ADM AUTHOR: Naty Mckeon MD * ALL edits or amendments must be made on the Modern [employer]/computer document * Subjective Subjective Admission EGA: Weeks: 37 Days: 2 EGA at delivery (wks/days): 37 weeks (3 days) Status/day: post (day 1) Patient reports: Patient reports: Yes: normal lochia, pain management effective, tolerating po well, voiding well, voiding without pain, tolerating ambulatio n. No: complaints, nausea, vomiting, excessive bleeding , abdominal pain, perineal pain, difficulty nursing, headache, blurred vision. Objective General VS: Vital Signs Date Temp Pulse Resp B/P B/P Mean Pulse Ox FiO2 04/18 97.9 79 20 /71 Last Documented: Result Date Time B/P 04/18 Temp 97.9 04/18 2330 Pulse 79 04/18 2330 Resp 20 04/18 2330 Pulse Ox 98 04/18 0805 B/P Mean 87.0 04/18 0754 Patient Weight Weight (lb): 157 Weight (oz): Weight (kg): 71.628993 Physical Exam Breasts: Breasts: normal, non-tender, soft Cardiac: normal rhythm Lungs: unlabored breathing Neuro: Exam: alert, oriented x3, normal speech Abdomen: post gravid, soft, no abnormal tenderne ss, no guarding, no rebound tenderness Uterus: involution appropriate, non-tender Fundus: below the umbilicus Lochia: normal Episiotomy or laceration: we ll approximated edges, no inflammation, no drainage noted Lower extremities: Edema: none Results Findings/Data: Laboratory Tests: 04/19 04/17 04/17 0616 1610 1516 Chemistry Glucose (65 - 110 mg/dL) 140 H Hematology WBC (6.6 - 12.1 K/mm3) 11.8 RBC (3.45 - 5.01 M/mm3) 3.82 Hgb (10.7 - 13.9 g/dL) 8.5 L 12.0 Hct (32.1 - 42.1 %) 26.0 L 35.8 MCV (84.1 - 94.8 fL) 94 MCH (27 - 35 pg) 31.4 MCHC (32.2 - 34.1 gm/dL) 33.5 RDW (12.4 - 16.5 %) 13.4 Plt Count (133 - 385 K/mm3) 164 MPV (9.1 - 12.7 fl) 11.2 Neut % (Auto) (56.5 - 79.4 %) 75.1 Lymph % (Auto) (14.3 - 34.3 %) 17.9 [place] % (Auto) (5.1 - 10.4 %) 4.6 L Eos % (Auto) (0.1 - 3.0 %) 1.2 Baso % (Auto) (0.1 - 1.0 %) 0.3 Neut # (Auto) (K/mm3) 8.9 Lymph # (Auto) (K/mm3) 2.1 [place] # (Auto) (K/mm3) 0.5 Eos # (Auto) (K/mm3) 0.14 Baso # (Auto) (K/mm3) 0.0 Other Body Source Membranes Rupture RUPTURED Serology Treponema pallidum Ab (NONREACTIVE) NONREACTIV E Hep Bs Antigen (NONREACTIVE) NONREACTIVE Hepatitis C Antibody (NONREACTIVE) NONREACTIVE Hep C Ab Signal/Cutoff (<0.80) 0.06 HIV 1 2 Antibody (NONREACTIVE) NONREACTIVE SARS-CoV-2 Ag (Rapid) (NEGATIVE) NEGATIVE Discharge Summary General Free Text A P: PPD#1 s/p , PROM, GBS neg - discharge home Date of admission: Date of admission: 04/17/20 Admission diagnosis: diabetes-gestational, PROM- term Hospital course: induction of labor, spontaneous vag delivery, epidural anesthesia, nml postop/postpart care Procedures: spontaneous vaginal deliv Discharge condition: stable Discharge to: Home/Self Care Discharge diagnosis: full-term uncomp delivery Baby A: Vaginal delivery: spontaneous status: live born Gender: male 1 minute: 8 5 minutes: 9 Nursing data: The data set between the solid lines has been im ported from nursing documentation. Any exceptions have been noted be low under Provider comments. Delivery date infant A: 04/18/20 Delivery time i nfant A: 0421 Birthweight (gm) infant A: 2980 Feeding preference: Gender A: Female 1 minute infant A: 8 5 minutes A: 9 10 minutes infant A: Provider comments on imported nursing data: [] Discharge Instructions Diet: Regular Activity: No [place] for 6 Wks, Nothing in v agina pre f/u Additional discharge routines: Attending Follow- Up Discharge meds: Continue taking these medications: IRON (IRON) 18 MG TAB 18 MILLIGRAM ORAL DAILY. PNV WITH CA/IRON/FA/DHA (PRENATE ESSENTIAL) 28 M G IRON-1 MG-300 MG CAP 1 CAPSULE ORAL DAILY. SERTRALINE (ZOLOFT) 50 MG TAB 50 MILLIGRAM ORAL DAILY. ERGOCALCIFEROL (VITAMIN D2) 50,000 UNIT CAP 50,000 UNITS ORAL EVERY 14 DAYS. ERGOCALCIFEROL (VITAMIN D2) 50,000 UNIT CAP 50,000 UNITS ORAL EVERY 7 DAYS. DOCUSATE SODIUM (COLACE) 50 MG CAP 50 MILLIGRAM ORAL DAILY. Start taking the following new medications: IBUPROFEN (MOTRIN) 600 MG TAB 600 MILLIGRAM ORAL EVERY 6 HOURS NEEDED. as needed for pain Qty = 60 Refills = 1 HYDROcodone/APAP (NORCO 5/325) 1 TAB TAB 1 TABLET ORAL EVERY 4 HOURS NEEDED. as neede d for PAIN Days = 15 Qty = 30 No Refills Add'l Follow-up Appointments Attending Physician: Attending Physician: Naty Mckeon MD Attending physician follow up timeframe: In 5-6 weeks Electronically Signed by Naty Mckeon MD on at 1158 RPT #:[id number] END OF REPORT 2020-04-18 07:58:00-00:00 [facility] Clinical Note REPORT#:[id number] REPORT STATUS: Signed DATE:04/18/20 TIME: 0758 PATIENT: EDWIGE HART UNIT #: [id number] ROOM/BED: [address] : 87 AGE: 35 SEX: F ATTEND: Luis Antonio Mckeon pe, MD ADM AUTHOR: Ashlyn Mondragon MD * ALL edits or amendments must be made on the el [employer]/computer document * Clinical Note Note: I was called to the L and D for evaluation post hemorrhage after the delivery On exam VS:99/58, 70,20 Heart RRR Lung:CTA Abdomen:Soft uterus boggy VE sterile speculaum exam do ne no cervical tears noted but there was large clot in the uetrus Evacuated and then Vaginal wall explored for any bleeding areas Noted 2 periurethral tear which were bleeding an d sutured with 3 0 vicryl , Noted good hemostasis after suturing Rectal Cytotec placed at 1809 RPT #:[id number] END OF REPORT 2020-04-18 04:39:00-00:00 [facility] OB Delivery Note REPORT#:[id number] REPORT STATUS: Signed DATE:04/18/20 TIME: 0439 PATIENT: EDWIGE HART UNIT #: [id number] ROOM/BED: [address] : [address] AGE: 35 SEX: F ATTEND: Angelique Mckeon MD ADM AUTHOR: Naty Mckeon MD * ALL edits or amendments must be made on the el [employer]/computer document * OB Delivery Nursing Documentation Review Nursing data: The data set between the solid lines has been im ported from nursing documentation. Any exceptions have been noted be low under Provider comments. _ ROM date: 04/17/20 ROM time: 0530 Membranes rupture method: SROM Amniotic fluid color: Clear Amniotic fluid amount: Steroids prior to arrival: Antibiotic prophylaxis given: [place] evaluation at delivery: Delivery date A: Delivery time infant A: Birthweight (gm) infant A: Weight (lb) A: 6 Weight (oz) infant A: 9 Gender A: Female 1 minute infant A: 8 5 minutes infant A: 9 10 minutes A: Cord pH obtained infant A: Vacuum time infant A: Vacuum # pulls infant A: Vacuum # popoffs infant A: QBL at delivery: __ Provider comments on imported nursing data: [] Pre-delivery GBS status: GBS status: negative evaluation at delivery: NICU Admission EGA: Weeks: 37 Days: 2 EGA at delivery (wks/days): 37 weeks (3 days) Baby A Information Baby A information Delivery date: 04/18/20 Delivery time: 042 status: live born Wt of baby (lbs/oz): 6#9oz Gender: male 1 minute: 8 5 minutes: 9 Presentation: vertex Additional comments: Uncomplicated vaginal delivery of live male infa nt PIEDAD with right shoulder anterior. Shoulders and body delivered without d ifficulty. Vigorous placed on maternal abdomen, cohp-ic-kqpr . Cord clamped and cut, and cord blood was obtained. Placenta delivered with ge ntle traction and suprapubic pressure, intact upon inspection. IV p itocin administered prophylactically. Second degree laceration was repaired in a running, lo cked fashion using 2-0 chromic suture. Hemostasis achieved. EBL 350 cc. A vaginal exam was negative for sponges. Counts correct. Mother and stable. No complicati ons. Vaginal Delivery Vaginal delivery: Labor: induced Medications/Devices used: oxytocin Vaginal delivery: spontaneous Amniotic fluid: clear Anesthesia type: epidural anesthesia Laceration repair: yes, 2-0 suture Placenta: spontaneous Post delivery meds used: oxytocin Count: correct, vag exam neg for sponges Mother's condition: mother stable 's condition: infant stable in room Lacerations: Perineal laceration(s): 2nd Degree Blood Loss/Details Blood loss at delivery: <1000 ml EBL at delivery (ml's): 350 Electronically Signed by Naty Mckeon MD on at 0442 RPT #:[id number] END OF REPORT 2020-04-18 03:24:00-00:00 [facility] OB Admission / H P REPORT#:[id number] REPORT STATUS: Signed DATE:04/18/20 TIME: 323 PATIENT: EDWIGE HART UNIT #: [id number] ROOM/BED: [address] : 87 AGE: 35 SEX: F ATTEND: Luis Antonio Mckeon pe, MD ADM AUTHOR: Naty Mckeon MD * ALL edits or amendments must be made on the el [employer]/computer document * OB History Chief complaint: suspected ruptured memb HPI: 35 yo G1 with IUP at 37.3 by 8 wk sono not c/w L MP EDC 05/06/2020. PNC: A1DM, VSD. Pt admitted after c/o SROM at 0500. I n DEVAUGHN SROM was confirmed. history: : 1 Current : Admission EGA (weeks) 37 Admission EGA (days) 2 Conditions of : rosana betes - gestational, GBS status (unknown), VSD Labs: Blood type: A Rh: positive Rubella: immune Hepatitis B: negative HIV: negative STD: negative Syphilis: currently negative GBS: unknown Past medical history: anxiety/depression Past surgical history: sinus surgery, breast red uction Social history: employed, no alcohol use, no tob acco use, no drug use Family history Relation not specified for: Family History: Unremarkable Medications: Home Medications: IRON 18 MG PO DAILY PNV WITH CA/IRON/FA/DHA (PRENATE ESSENTIAL) 1 CA P PO DAILY SERTRALINE (ZOLOFT) 50 MG PO DAILY ERGOCALCIFEROL (VITAMIN D2) 50,000 UNITS PO Q14D ERGOCALCIFEROL (VITAMIN D2) 50,000 UNITS PO Q7D DOCUSATE SODIUM (COLACE) 50 MG PO DAILY Allergies Coded Allergies: No Known Allergies (04/17/20) Review of Systems : Reports: , other (SROM). Denies: pelvic pain. All systems rev neg: except as marked Objective General VS: Last Documented: Result Date Time B/P Mean 86.0 04/18 0256 B/P 121/62 04/18 025 Pulse 62 04/18 025 Temp 97.8 04/17 2202 Resp 16 04/17 1906 Vital Signs Date Temp Pulse Resp B/P B/P Mean Pulse Ox FiO2 04/17-04/18 97.7-98.8 53-88 16-18 111-149/60-96 82.0-108.0 Patient Weight Weight (lb): 157 Weight (oz): Weight (kg): 71.243837 Physical Exam HEENT: normocephalic w/o injury Cardiac: regular rate and rh ythm, no clinically sig murmur, no gallops, no rubs Lungs: unlabored breathing Neuro: Exam: alert, oriented x3, normal speech Abdomen: gravid, soft Genitourinary: tinajero Uterine activity: Monitor: toco Frequency (description): regular Frequency (minutes): 2 Pelvic exam: Pelvis clinically adequate: yes Cervical/ exam: Dilatation (cm): 10 - complete Effacement (%): 100 Suspected macrosomia: No Suspected > 5000 grams: No station: + 2 presentation: cephalic Membranes: Membranes: SROM Lower extremities: Edema: none Baby A: Baby A baseline: 120 bpm Baby A variability: moderate 6-25 bpm Baby A accelerations: 15 X 15 Baby A FHR category: category 1 Result Findings/Data: Laboratory Tests: 04/17 04/17 1610 1516 Chemistry Glucose (65 - 110 mg/dL) 140 H Hematology WBC (6.6 - 12.1 K/mm3) 11.8 RBC (3.45 - 5.01 M/mm3) 3.82 Hgb (10.7 - 13.9 g/dL) 12.0 Hct (32.1 - 42.1 %) 35.8 MCV (84.1 - 94.8 fL) 94 MCH (27 - 35 pg) 31.4 MCHC (32.2 - 34.1 gm/dL) 33.5 RDW (12.4 - 16.5 %) 13.4 Plt Count (133 - 385 K/mm3) 164 MPV (9.1 - 12.7 fl) 11.2 Neut % (Auto) (56.5 - 79.4 %) 75.1 Lymph % (Auto) (14.3 - 34.3 %) 17.9 [place] % (Auto) (5.1 - 10.4 %) 4.6 L Eos % (Auto) (0.1 - 3.0 %) 1.2 Baso % (Auto) (0.1 - 1.0 %) 0.3 Neut # (Auto) (K/mm3) 8.9 Lymph # (Auto) (K/mm3) 2.1 [place] # (Auto) (K/mm3) 0.5 Eos # (Auto) (K/mm3) 0.14 Baso # (Auto) (K/mm3) 0.0 Serology Treponema pallidum Ab (NONREACTIVE) NONREACTIVE Hep Bs Antigen (NONREACTIVE) NONREACTIVE Hepatitis C Antibody (NONREACTIVE) NONREACTIVE Hep C Ab Signal/Cutoff (<0.80) 0.06 HIV 1 2 Antibody (NONREACTIVE) NONREACTIVE SARS-CoV-2 Ag (Rapid) (NEGATIVE) NEGATIVE Diagnosis, Assessment Plan Diagnosis, Assessment Plan Free Text A P: 35 yo G1 with IUP at 37.3, A1DM, VSD, unkn own GBS - admitted tacho L D for IOL secondary to PROM - PCN for GBS ppx, given GBS still pending - Epidural for pain control - ASVD Electronically Signed by Naty Mckeon MD on at 0346 RPT #:[id number] END OF REPORT
[2022-11-23] MEDS ORDERED: MORPHINE 4 MG/ML SYR ONE (15:10)
[2022-11-23] MEDS ORDERED: NA CHLORIDE 0.9% 1,000 ML ONE (15:10)
[2022-11-23] MEDS ORDERED: ONDANSETRON 4 MG/2 ML VIAL ONE (15:10)
[2022-11-23 15:27] LABS: Absolute Lymphocytes (CBC) 0.9 K/uL (0.7-4.9); Hematocrit 44.1 % (36.0-45.0); Lymphocytes % 16.6 % (15.3-44.8); MCV 93.5 fL (80-100); MPV 7.8 fL (7.6-11.3); RBC Red Blood Cell Count 4.72 M/uL (3.86-4.86)
[2022-11-23 15:28] LABS: Specific Gravity 1.024 (1.005-1.030); Urine Bacteria <20 /HPF (<20); Urine Bilirubin NEGATIVE (Negative); Urine Blood Negative (Negative); Urine Clarity Extremely Turbid (Clear); Urine Color Yellow (Yellow); Urine Crystals Unidentified Few /HPF (None Seen); Urine Glucose NEGATIVE (Negative); Urine Mucus Slight /HPF (None Seen); Urine Protein TRACE (Negative); Urine Urobilinogen Normal (Normal)
--- NOTE | 2022-11-23 15:37 | RAD REPORT ---
EXAM DESCRIPTION: US - Abdomen Exam Limited - 11/23/2022 2:53 pm CLINICAL HISTORY: ABD PAIN COMPARISON: No comparisons TECHNIQUE: Sonographic grayscale and color flow images of the right upper abdominal quadrant were obtained. FINDINGS: The gallbladder is suboptimally distended, limiting evaluation. It demonstrates no gallsto isidra. No pericholecystic fluid or gallbladder wall thickening. The common bile duct is normal measurin g 4 mm. The liver demonstrates no findings of intrahepatic biliary dilatation. IMPRESSION: Mildly contracted gallbladder, limiting evaluation. No evidence of cholelithiasis or oth er acute findings.
[2022-11-23 15:46] LABS: Albumin 3.5 g/dL (3.4-5.0); Bilirubin Total 0.3 mg/dL (0.2-1.0); Potassium 3.3 mEq/L (3.5-5.1); Protein, Total 7.3 g/dL (6.4-8.2)
--- NOTE | 2022-11-23 17:09 | RAD REPORT ---
EXAM DESCRIPTION: CT - Abdomen Pelvis W Contrast - 11/23/2022 4:22 pm CLINICAL HISTORY: right sided abd pain, vomiting, fever COMPARISON: Abdomen Exam Limited dated 11/23/2022 TECHNIQUE: Thin cut axial CT imaging of the abdomen and pelvis was performed following intravenous a dministration of 100 mL Isovue 300. Multiplanar reformats were generated and reviewed. All CT scans are performed using dose optimization technique as appropriate and may include automated exposure control or mA/KV adjustment according to patient size. FINDINGS: No suspicious findings in the lung bases. The liver, spleen, and pancreas show no suspicious findings. Focal fatty infiltration along the falci form ligament margins. Gallbladder and biliary tree are also without suspicious finding. Symmetric renal function is seen with no hydronephrosis or suspicious renal mass. 2-3 millimeter nono bstructing right lower pole calculi. No dilated bowel loops or bowel wall thickening. No free air, free fluid or inflammatory stranding. N o hernia, mass or bulky lymphadenopathy. The urinary bladder is without significant finding. No suspicious bony findings. IMPRESSION: Right lower renal pole 2-3 millimeter nonobstructing calculi. No other acute intra-abdom inal process.
--- NOTE | 2022-11-23 17:19 | EDPHYS ---
Physician Documentation [facility] Name: Leigh Ya Age: 37 yrs Sex: Female : 1985 Arrival Date: 11/23/2022 Time: 13:55 Bed 17 Private MD: ED Physician Jose Alejandro Vela HPI: 11/23 14:14 This 37 yrs old Female presents to ER via Ambulatory with complaints of Abdominal Pain. rn 14:14 The patient presents with abdominal pain in the right upper quadrant, right lower rn quadrant. Onset: The symptoms/episode began/occurred yesterday. The symptoms do not radiate. Associated signs and symptoms: Pertinent positives: nausea and vomiting, anorexia, Pertinent negatives: blood in stools, chest pain, shortness of breath, vaginal discharge, vomiting blood. Modifying factors: The symptoms are alleviated by nothing, the symptoms are aggravated by touching the area. Severity of pain: At its worst the pain was moderate in the emergency department the pain is unchanged. The patient has not experienced similar symptoms in the past. The patient has not recently seen a physician. 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 - Social history:: Smoking status: Patient reports the use of cigarette tobacco products, smokes one-half pack cigarettes per day. - Family history:: not pertinent. - Hospitalizations: : No recent hospitalization is reported. ROS: 14:14 Constitutional: Negative for fever, chills, and weight loss, Cardiovascular: Negative rn for chest pain, palpitations, and edema, Respiratory: Negative for shortness of breath, cough, wheezing, and pleuritic chest pain, Abdomen/GI: + abd pain and vomiting Back: Negative for injury and pain, : Negative for injury, bleeding, discharge, and swelling, MS/Extremity: Negative for injury and deformity, Skin: Negative for injury, rash, and discoloration, Neuro: Negative for headache, weakness, numbness, tingling, and seizure. 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 Head/Face: Normocephalic, atraumatic. Cardiovascular: Regular rate and rhythm. No pulse deficits. Respiratory: No increased work of breathing, no retractions or nasal flaring. Abdomen/GI: soft, + RUQ and right mid abd tenderness, no rebound, no distension Skin: Warm, dry MS/ Extremity: Pulses equal, no cyanosis Neuro: Awake and alert, GCS 15 Vital Signs: 14:06 BP 112 / 83; Pulse 87; Resp 16; Temp 98.5; Pulse Ox 100% on R/A; Weight 66.22 kg; nj1 Height 5 ft. 0 in. ; Pain 8/10; 15:17 BP 108 / 63; Pulse 78; Resp 18; Pulse Ox 98% on R/A; mb9 15:39 BP 103 / 80; Pulse 71; Resp 16; Pulse Ox 97% on R/A; mb9 16:33 BP 106 / 64; Pulse 75; Resp 16; Pulse Ox 99% on R/A; mb9 17:30 BP 115 / 73; Pulse 70; Resp 16; Pulse Ox 99% on R/A; mb9 14:06 Body Mass Index 28.51 (66.22 kg, 152.4 cm) nj 14:06 Pain Scale: Adult nj MDM: 14:00 Patient medically screened. rn 17:17 Differential diagnosis: appendicitis, bowel obstruction, cholecystitis, Cholelithiasis, rn diverticulitis, gastroesophageal reflux disease, non-specific abd pain, pancreatitis, Peptic Ulcer Disease, Ureterolithiasis, urinary tract infection. Data reviewed: vital signs, nurses notes, lab test result(s), radiologic studies, CT scan, ultrasound, and as a result, I will discharge patient. Counseling: I had a detailed discussion with the patient and/or guardian regarding: the historical points, exam findings, and any diagnostic results supporting the discharge/admit diagnosis, lab results, radiology results, the need for outpatient follow up, to return to the emergency department if symptoms worsen or persist or if there are any questions or concerns that arise at home. Response to treatment: the patient's symptoms have markedly improved after treatment, and as a result, I will discharge patient. Special discussion: Based on the patient's Hx, exam, and Dx evaluation, there is no indication for emergent surgery or inpatient Tx. It is understood by the patient/guardian that if the Sx's persist or worsen they need to return immediately for re-evaluation. I discussed with the patient/guardian in detail that at this point there is no indication for admission to the hospital. It is understood, however, that if the symptoms persist or worsen the patient needs to return immediately for re-evaluation. ED course: CT shows right renal calculi, nothing in ureter but shows some blood in urine. No UTI. No appendicitis or cholecystitis. Told her could be viral syndrome vs recently passed stone. Will dc home with return precautions and prn zofran.. 11/23 14:13 Order name: CBC with Diff; Complete Time: 15:49 11/23 14:13 Order name: CMP; Complete Time: 15:49 11/23 14:13 Order name: Lipase; Complete Time: 15:49 11/23 14:13 Order name: Test, Urine; Complete Time: 15:49 11/23 14:13 Order name: Urinalysis w/ reflexes; Complete Time: 15:49 11/23 14:13 Order name: Flu; Complete Time: 16:06 11/23 14:13 Order name: CT Abd/Pelvis - IV Contrast Only; Complete Time: 17:12 11/23 14:13 Order name: US Abdomen Limited; Complete Time: 15:49 11/23 14:13 Order name: IV Saline Lock; Complete Time: 15:19 11/23 14:13 Order name: Labs collected and sent; Complete Time: 15:19 rn Administered Medications: 15:15 Drug: NS 0.9% IV 1000 ml Route: IV; Rate: 1 bolus; Site: right wrist; mb9 15:15 Drug: Ondansetron IVP 4 mg Route: IVP; Site: right wrist; mb9 15:18 Drug: morphine IVP or IV 4 mg Route: IVP; Infused Over: 4 mins; Site: right wrist; mb9 Disposition Summary: 11/23/22 17:19 Discharge Ordered Location: Home rn Problem: new rn Symptoms: have improved rn Condition: Stable rn Diagnosis - Vomiting rn - Abdominal pain, unspecified rn - Calculus of kidney rn Followup: rn - With: Private Physician - When: As needed - Reason: Recheck today's complaints, Re-evaluation by your physician Discharge Instructions: - Discharge Summary Sheet rn - Abdominal Pain, Adult rn - Kidney Stones rn - Nausea and Vomiting, Adult rn Forms: - Medication Reconciliation Form rn - Thank You Letter rn - Antibiotic harness cutter - Prescription Opioid Use rn - [email or web address] rn Prescriptions: - ondansetron 4 mg Oral Tablet,disintegrating - take 1 tablet by ORAL route every 8 hours As needed; 15 tablet; Refills: 0, rn Product Selection Permitted Signatures: Dispatcher [employer] EDJose Alejandro Mosqueda MD MD rn Breneman, Wanda Henry RN RN mb9 Melia Durant RN RN nj1
--- NOTE | 2022-11-23 17:19 | ER ---
Nurse's Notes [facility] Name: Leigh Ya Age: 37 yrs Sex: Female : 1985 Arrival Date: 11/23/2022 Time: 13:55 Bed 17 Private MD: Diagnosis: Vomiting;Abdominal pain, unspecified;Calculus of kidney Presentation: 11/23 14:06 Chief complaint: Patient states: Right upper abdominal pain since yesterday. Vomit once nj1 last night. Diarrhea. Seen in urgent care, advised to come to ED for further evaluation/treatment. Coronavirus screen: Vaccine status: Patient reports being unvaccinated. Ebola Screen: Patient denies travel to an Ebola-affected area in the 21 days before illness onset. Initial Sepsis Screen: Does the patient meet any 2 criteria? No. Patient's initial sepsis screen is negative. Does the patient have a suspected source of infection? No. Patient's initial sepsis screen is negative. Risk Assessment: Do you want to hurt yourself or someone else? Patient reports no desire to harm self or others. Onset of symptoms was November 22, 2022. 14:06 Method Of Arrival: Ambulatory [facility] 14:06 Acuity: MACI 3 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 14:14 Sinus surgery; [facility] - Immunization history:: Client reports having NOT received the Covid vaccine. - Social history:: Smoking status: Patient reports the use of cigarette tobacco products, smokes one-half pack cigarettes per day. - Family history:: not pertinent. - Hospitalizations: : No recent hospitalization is reported. Screenin:17 [facility] ED Fall Risk Assessment (Adult) History of falling in the last 3 months, mb9 including since admission No falls in past 3 months (0 pts) Confusion or Disorientation No (0 pts) Intoxicated or Sedated No (0 pts) Impaired Gait No (0 pts) Mobility Assist Device Used No (0 pt) Altered Elimination No (0 pt) Score/Fall Risk Level 0 - 2 = Low Risk Oriented to surroundings, Maintained a safe environment, Educated pt \T\ family on fall prevention, incl call for assistance when getting out of bed. Abuse screen: Denies threats or abuse. Nutritional screening: No deficits noted. Tuberculosis screening: No symptoms or risk factors identified. Assessment: 14:15 Reassessment: pt taken to ultrasound. mb9 15:00 General: Appears uncomfortable, Behavior is calm, cooperative. Pain: Complains of pain mb9 in abdomen Pain radiates to RLQ and RUQ Pain currently is 8 out of 10 on a pain scale. Quality of pain is described as throbbing, Pain began 1 day ago. Is continuous. Neuro: [place] Agitation-Sedation Scale (RASS): 0 - Alert and Calm Level of Consciousness is awake, alert, obeys commands, Oriented to person, place, time, situation, Appropriate for age. 15:00 Cardiovascular: Patient's skin is warm and dry. Respiratory: Airway is patent mb9 Respiratory effort is even, unlabored, Respiratory pattern is regular, symmetrical, Breath sounds are clear bilaterally. GI: Abdomen is flat, non-distended, Bowel sounds present X 4 quads. Abd is soft Abdomen is tender to palpation in right upper quadrant and right lower quadrant Reports nausea, vomiting. Derm: Skin is pink, warm \T\ dry. Musculoskeletal: Range of motion: intact in all extremities. 16:35 Reassessment: No changes from previously documented assessment. Patient and/or family mb9 updated on plan of care and expected duration. Pain level reassessed. Patient is alert, oriented x 3, equal unlabored respirations, skin warm/dry/pink. 17:30 Reassessment: Patient and/or family updated on plan of care and expected duration. Pain mb9 level reassessed. Patient is alert, oriented x 3, equal unlabored respirations, skin warm/dry/pink. Patient states feeling better. Patient states symptoms have improved. Vital Signs: 14:06 BP 112 / 83; Pulse 87; Resp 16; Temp 98.5; Pulse Ox 100% on R/A; Weight 66.22 kg; nj1 Height 5 ft. 0 in. ; Pain 8/10; 15:17 BP 108 / 63; Pulse 78; Resp 18; Pulse Ox 98% on R/A; mb9 15:39 BP 103 / 80; Pulse 71; Resp 16; Pulse Ox 97% on R/A; mb9 16:33 BP 106 / 64; Pulse 75; Resp 16; Pulse Ox 99% on R/A; mb9 17:30 BP 115 / 73; Pulse 70; Resp 16; Pulse Ox 99% on R/A; mb9 14:06 Body Mass Index 28.51 (66.22 kg, 152.4 cm) nj1 14:06 Pain Scale: Adult [facility] ED Course: 13:57 Patient arrived in ED. im 14:00 Jose Alejandro Vela MD is Attending Physician. rn 14:13 Triage completed. nj1 14:14 Arm band placed on right wrist. nj1 14:21 Wanda Rashid, VIKASH is Primary Nurse. mb9 14:36 Radiology exam delayed due to test not completed at this time. IV insertion [id number] attempt and/or patient not having appropriate IV at this time. 14:49 US Abdomen Limited In Process Unspecified. EDMS 15:08 Inserted saline lock: 22 gauge in right wrist, using aseptic technique. mb9 15:17 Placed in gown. Bed in low position. Call light in reach. Side rails up X 1. Client mb9 placed on continuous cardiac and pulse oximetry monitoring. NIBP monitoring applied. 15:19 Flu Sent. mb9 15:19 CBC with Diff Sent. mb9 15:19 CMP Sent. mb9 15:19 Lipase Sent. mb9 15:19 Test, Urine Sent. mb9 15:19 Urinalysis w/ reflexes Sent. mb9 15:39 No provider procedures requiring assistance completed. mb9 16:23 CT Abd/Pelvis - IV Contrast Only In Process Unspecified. EDMS 17:30 IV discontinued, intact, bleeding controlled, No redness/swelling at site. Pressure mb9 dressing applied. Administered Medications: 15:15 Drug: NS 0.9% IV 1000 ml Route: IV; Rate: 1 bolus; Site: right wrist; mb9 15:15 Drug: Ondansetron IVP 4 mg Route: IVP; Site: right wrist; mb9 15:18 Drug: morphine IVP or IV 4 mg Route: IVP; Infused Over: 4 mins; Site: right wrist; mb9 Medication: 15:18 VIS not applicable for this client. mb9 Outcome: 17:19 Discharge ordered by . rn 17:30 Discharged to home ambulatory. mb9 17:30 Condition: stable 17:30 Discharge instructions given to patient, Instructed on discharge instructions, follow up and referral plans. Demonstrated understanding of instructions, follow-up care, medications, Prescriptions given X 1. 17:31 Patient left the ED. mb9 Signatures: Dispatcher [employer] EDJose Alejandro Mosqueda MD MD rn Galvan, Juliet jWanda Arhculeta RN RN mb9 Melia Durant RN RN nj1 Cleopatra Méndez
[2022-11-23 17:55] VITALS: TEMP 98.5
[2022-11-23 18:01] VITALS: O2SAT 99
[2022-11-23 18:03] VITALS: BP 115/73
== END 2022-11-23 17:31 | disposition home or self-care (01) ==
LOC: ER 13:55
DX: N20.0 Calculus of kidney (principal); R11.10 Vomiting, unspecified; F17.210 Nicotine dependence, cigarettes, uncomplicated
CPT/HCPCS: 85025; 81001; 36415; 81025; 83690; 80053; 87804 ×2; 74177; 76705; 96375; 96374; 99284; Q9967; J2405; J7030

== ENCOUNTER 2023-01-26 16:03 | Emergency (ER) | payer OTHER ==
--- OUTSIDE RECORDS SUMMARY | 2023-01-26 16:08 | XMS REPORT | Continuity of Care Document ---
:1985 Author Organization Formerly [facility] t Address [address] [facility] [place] [address] Care Team Providers Name Role Phone Slaughters Danielle ROMERO Primary Care Physician [phone] Luis Vernon Attending Clinician Unavailable Yovana Velazquez Attending Clinician Unavailable Katrin Reynolds Attending Clinician Unavailable Ekwo, Naty Attending Clinician Unavailable HERNANDO DELONG Attending Clinician Unavailable Hernando Espitia Attending Clinician Unknown, Attending Attending Clinician Unavailable Bernadine Whitney PA-C Attending Clinician BERNADINE WHITNEY Attending Clinician Unavailable Nurse, [facility] Attending Clinician Unavailable Kian Dc Attending Clinician KIAN JIMENEZ Attending Clinician Unavailable Doctor Unassigned, [place] Attending Clinician Unavailable ARLENE BASHIR Attending Clinician Unavailable Provider, [facility] Attending Clinician Unavailable Berny Mcclellan Attending Clinician [phone] BERNY MITCHELL Attending Clinician Unavailable King MARCEL MD, Sd Sequeira Attending Clinician CHRISSIE UPTON Attending Clinician Unavailable Chrissie Looney Attending Clinician CHIP QUAN Attending Clinician Unavailable Ekwo, Naty Admitting Clinician Unavailable Payers Payer Name Policy Type Policy Number Effective Date Expiration Date S clint [facility] DILCIA [id number] 2020 00:00:00 [place] [id number] 2020 [facility] 00:00:00 [facility] Problems Condition Condition Condition Status Onset Resolution Last Treating Co mments Source Name Details Category Date Date Treatment Clinician Date No known No known Disease Unive rs active active ity of problems problems [facility] [id number] Seasonal Problem Comm on allergies [facility] [id number] Depression Problem Co mmon with [facility] anxiety [facility] [id number] Chronic Problem Common fatigue [facility] [id number] Vitamin D Problem Comm on deficiency [facility] Allergies, Adverse Reactions, Alerts Allergy Allergy Status Severity Reaction(s) Onset Inactive Treating Comm ents Source Name Type Date Date Clinician No Known DA Active U 2019-05 [facility] No Known DA Active U 2019-05 [facility] 06[facility]17 [facility] 00 [facility] NO KNOWN Drug Active Univers ALLERGIE Class ity of S [facility] Social History Social Habit Start Date Stop Date Quantity Comments Source Gender identity [facility] Sexual orientation [facility] of Tobacco [facility] - Use [facility] Exposure to 2022-09-11 2022-09-21 Not sure [facility]-CoV-2 (event) 00:00:00 14:12:00 [facility] Tobacco use and 2022-04-24 2022-04-24 Smokeless Universit y of exposure 00:00:00 00:00:00 tobacco non-user [facility] History of Social 2019-07-29 2019-07-[address] function 00:00:00 00:00:00 Hospital Sex Assigned At [birth year] [facility] 00:00[facility]00 [facility]00 Hospital Smoking Status Start Date Stop Date Source Tobacco smoking consumption [facility] Never smoked tobacco [facility] Medications Ordered Filled Start Stop Current Ordering Indication Dosage Frequency Signature Comments Components Source Medication Medication Date Date Medication? Clinician (SIG) Name Name dexamethaso 2022- No [id number] 10mg Univers ne 01-16 ity of (DECADRON) 15:58: 16:03 [place] injection 00 :00 Medical 10 mg Branch dexamethaso 2022- No [id number] 10mg 10 mg, Univers ne 01-16 Intramuscu ity of (DECADRON) 15:58: 16:03 lar, ONCE, [place] injection 00 :00 1 dose, On Medi alonso 10 mg Tue Branch 01/16/23 at 1100, Routine methylPREDN Yes [id number] follow Univers ISolone 01-16 package ity of (MEDROL, 00:00: directions Jagdish as ABEL,) 4 mg 00 Medical tablets Branch albuterol Yes [id number] 2{puff} Inhale 2 Univers 90 8-17 Puffs ity of mcg/actuati 00:00: every 6 Jagdish as on inhaler 00 (six) Medical hours as Branch needed for Shortness of Breath. bromphenira Yes [id number] 5mL Take 5 mL Univers mine-pseudo 8-17 by mouth 3 it y of ephedrine-D 00:00: (three) Jagdish as M (BROMFED 00 times Medical DM) 2-30-10 daily as Bran ch mg/5 mL needed for syrup Cold symptoms or Cough. fluticasone Yes [id number] 2{spray Use 2 Univers propionate 8-17 } Sprays in ity of 50 00:00: each [place] mcg/actuati 00 nostril in Me dical on nasal the Branch spray morning. albuterol 0 Yes [id number] 2{puff} Inhale 2 Univers 90 8-17 Puffs ity of mcg/actuati 00:00: every 6 Jagdish as on inhaler 00 (six) Medical hours as Branch needed for Shortness of Breath. bromphenira 0 Yes [id number] 5mL Take 5 mL Univers mine-pseudo 8-17 by mouth 3 it y of ephedrine-D 00:00: (three) Jagdish as M (BROMFED 00 times Medical DM) 2-30-10 daily as Bran ch mg/5 mL needed for syrup Cold symptoms or Cough. fluticasone 0 Yes [id number] 2{spray Use 2 Univers propionate 8-17 } Sprays in ity of 50 00:00: each [place] mcg/actuati 00 nostril in Sc dical on nasal the Branch spray morning. dexamethaso 2022- No [id number] 10mg Univers ne 09-21 ity of (DECADRON 21:00: 19:57 [place] PHOSPHATE) 00 :00 Medical injection Branch 10 mg dexamethaso No [id number] 10mg 10 mg, Univers ne 09-21 Intramuscu ity of (DECADRON 21:00: 19:57 lar, ONCE, [place] PHOSPHATE) 00 :00 1 dose, On Med ical injection [facility] Branch 10 mg 09/21/22 at 1600, Routine ketorolac No [id number] 30mg Un jamin (TORADOL) 09-21 ity of injection 20:45: 19:58 [place] 30 mg 00 :00 Medical Branch ketorolac 2022- No [id number] 30mg 30 mg, Univers (TORADOL) 09-21 Intramuscu ity of injection 20:45: 19:58 lar, ONCE, [place] 30 mg 00 :00 1 dose, On Medical Carrie Branch 09/21/22 at 1545, Routine methocarbam No [id number] 750mg Take 1 Univers oL 09-21-08 tablet by ity of (ROBAXIN-75 00:00: 04:59 [place] 4 [place] 750 mg 00 :00 (four) Medical tablet times [place] daily for 10 days. meloxicam No [id number] 15mg Take 1 Univers (MOBIC) 15 09-21 05-05 tablet by ity of mg tablet 00:00: 04:59 mouth in Jagdish as 00 :00 the Medical morning Branch for 7 days. ketorolac 2022- No [id number] 30mg Univers (TORADOL) 06-20 ity of injection 23:52: 23:55 [place] 30 mg 00 :00 Medical Branch ketorolac 2022- No [id number] 30mg 30 mg, Univers (TORADOL) 06-2000 Intramuscu it y of injection 23:52: 23:55 lar, ONCE, [place] 30 mg 00 :00 1 dose, On Medical Tue Branch 06/20/22 at 1800, Routine methylPREDN 2023-0 Yes [id number] follow [facility] 06-20 [id number] package ity of (MEDROL, 00:00: directions Jgadish as ABEL,) 4 mg 00 Medical tablets Branch methylPREDN 2023-[id number] [facility] [id number] package ity of (MEDROL, 00:00: directions Jagdish as ABEL,) 4 mg 00 Medical tablets Branch methylPREDN 2023-0 Yes [id number] [facility] [id number] package ity of (MEDROL, 00:00: directions Jagdish as ABEL,) 4 mg 00 Medical tablets Branch methylPREDN 2023-0 Yes [id number] follow [facility] 06-20 [id number] package ity of (MEDROL, 00:00: directions Jagdish as ABEL,) 4 mg 00 Medical tablets Branch methylPREDN 2023-0 Yes [id number] follow [facility] 06-20 [id number] package ity of (MEDROL, 00:00: directions Jagdish as ABEL,) 4 mg 00 Medical tablets Branch methylPREDN 2023-0 Yes [id number] follow [facility] 06-20 [id number] package ity of (MEDROL, 00:00: directions Jagdish as ABEL,) 4 mg 00 Medical tablets Branch methylPREDN 2023-0 Yes [id number] follow [facility] 06-20 [id number] package ity of (MEDROL, 00:00: directions Jagdish as ABEL,) 4 mg 00 Medical tablets Branch methylPREDN 2022-1 Yes [id number] Take by [facility] 06-24 mouth ity of (MEDROL, 00:00: SEE-INSTRU Jagdish as ABEL,) 4 mg 00 CTIONS. Medica l tablets follow Branch package directions methylPREDN 2021-1 Yes [id number] Take by [facility] 06-24 mouth ity of (MEDROL, 00:00: SEE-INSTRU Jagdish as ABEL,) 4 mg 00 CTIONS. Medica l tablets follow Branch package directions methylPREDN 2021-1 Yes [id number] Take by [facility] 06-24 mouth ity of (MEDROL, 00:00: SEE-INSTRU Jagdish as ABEL,) 4 mg 00 CTIONS. Medica l tablets follow Branch package directions methylPREDN 2021-05 Yes [id number] Take by Univers ISolone 06-24 mouth ity of (MEDROL, 00:00: SEE-INSTRU Jagdish as ABEL,) 4 mg 00 CTIONS. Medica l tablets follow Branch package directions methylPREDN 2021-05 Yes [id number] Take by Univers ISolone 06-24 mouth ity of (MEDROL, 00:00: SEE-INSTRU Jagdish as ABEL,) 4 mg 00 CTIONS. Medica l tablets follow Branch package directions methylPREDN 2021-05 Yes [id number] Take by Univers ISolone 06-24 mouth ity of (MEDROL, 00:00: SEE-INSTRU Jagdish as ABEL,) 4 mg 00 CTIONS. Medica l tablets follow Branch package directions methylPREDN 2021-05 Yes [id number] Take by Univers ISolone 06-24 mouth ity of (MEDROL, 00:00: SEE-INSTRU Jagdish as ABEL,) 4 mg 00 CTIONS. Medica l tablets follow Branch package directions methylPREDN 2021-05 Yes [id number] Take by Univers ISolone 06-24 mouth ity of (MEDROL, 00:00: SEE-INSTRU Jagdish as ABEL,) 4 mg 00 CTIONS. Medica l tablets follow Branch package directions methylPREDN 2021-05 Yes [id number] Take by Univers ISolone 06-24 mouth ity of (MEDROL, 00:00: SEE-INSTRU Jagdish as ABEL,) 4 mg 00 CTIONS. Medica l tablets follow Branch package directions methylPREDN 2021-05 Yes [id number] Take by Univers ISolone 06-24 mouth ity of (MEDROL, 00:00: SEE-INSTRU Jagdish as ABEL,) 4 mg 00 CTIONS. Medica l tablets follow Branch package directions methylPREDN 2021-05 Yes [id number] Take by Univers ISolone 06-24 mouth ity of (MEDROL, 00:00: SEE-INSTRU Jagdish as ABEL,) 4 mg 00 CTIONS. Medica l tablets follow Branch package directions cyclobenzap 2021-05 202- No [id number] 5mg Take 1 Univers rine 5 mg 1-28 12-04 tablet by ity of tablet 00:00: 05:59 mouth 3 [place] 00 :00 (three) Medical times Branch daily as needed for Muscle Spasms for up to 5 days. cyclobenzap 2021-05- No [id number] 5mg Take 1 Univers rine 5 mg - 12-04 tablet by ity of tablet 00:00: 05:59 mouth 3 [place] 00 :00 (three) Medical times Branch daily as needed for Muscle Spasms for up to 5 days. cyclobenzap 2021-05- No [id number] 5mg Take 1 Univers rine 5 mg 06-24 12-04 tablet by ity of tablet 00:00: [...] mouth [place] tablet 00 every Medical morning. [place] buPROPion 2021-05 Yes 300mg Take 300 Uni [...] mouth [place] tablet 00 every Medical morning. [place] buPROPion 2021-05 Yes 300mg Take 300 Uni [...] e_morni (XL) 300 00 ng} MG cephALEXin 2021- No [id number] 500mg Take 1 Univers (KEFLEX) 5-25 06-05 capsule by ity of 500 mg 00:00: 04:59 mouth 4 [place] capsule 00 :00 (four) Medical times Branch daily for 10 days. buPROPion buPROPion No 1{table QD buPROPion HCl ER (XL) HCl ER (XL) - t_in_th HCl ER 150 MG 150 MG 00:00: e_morni (XL) 150 00 ng} MG buPROPion buPROPion No 1{table QD buPROPion HCl ER (XL) HCl ER (XL) - t_in_th HCl ER 150 MG 150 MG 00:00: e_morni (XL) 150 00 ng} MG doxycycline 2022-0 Yes [id number] 100mg Take 1 Univers monohydrate 1-13 capsule by it y of 100 mg 00:00: mouth 2 [place] capsule 00 (two) Medical times Branch daily. doxycycline 2022-0 Yes [id number] 100mg Take 1 Univers monohydrate 1-13 capsule by it y of 100 mg 00:00: mouth 2 [place] capsule 00 (two) Medical times Branch daily. doxycycline 2022-0 Yes [id number] 100mg Take 1 Univers monohydrate 1-13 capsule by it y of 100 mg 00:00: mouth 2 [place] capsule 00 (two) Medical times Branch daily. doxycycline 2022-0 Yes [id number] 100mg Take 1 Univers monohydrate 1-13 capsule by it y of 100 mg 00:00: mouth 2 [place] capsule 00 (two) Medical times Branch daily. doxycycline 2-0 Yes [id number] 100mg Take 1 Univers monohydrate 1-13 capsule by it y of 100 mg 00:00: mouth 2 [place] capsule 00 (two) Medical times Branch daily. doxycycline 2-0 Yes [id number] 100mg Take 1 Univers monohydrate 1-13 capsule by it y of 100 mg 00:00: mouth 2 [place] capsule 00 (two) Medical times Branch daily. doxycycline 2022-0 Yes [id number] 100mg Take 1 Univers monohydrate 1-13 capsule by it y of 100 mg 00:00: mouth 2 [place] capsule 00 (two) Medical times Branch daily. doxycycline 2022-0 Yes [id number] 100mg Take 1 Univers monohydrate 1-13 capsule by it y of 100 mg 00:00: mouth 2 [place] capsule 00 (two) Medical times Branch daily. doxycycline 2022-0 Yes [id number] 100mg Take 1 Univers monohydrate 1-13 capsule by it y of 100 mg 00:00: mouth 2 [place] capsule 00 (two) Medical times Branch daily. doxycycline 2022-0 Yes [id number] 100mg Take 1 Univers monohydrate 1-13 capsule by it y of 100 mg 00:00: mouth 2 [place] capsule 00 (two) Medical times Branch daily. doxycycline 2022-0 Yes [id number] 100mg Take 1 Univers monohydrate 1-13 capsule by it y of 100 mg 00:00: mouth 2 [place] capsule 00 (two) Medical times Branch daily. doxycycline 2021-0 Yes [id number] 100mg Take 1 Univers monohydrate 1-13 capsule by it y of 100 mg 00:00: mouth 2 [place] capsule 00 (two) Medical times Branch daily. doxycycline 2021-0 Yes [id number] 100mg Take 1 Univers monohydrate 1-13 capsule by it y of 100 mg 00:00: mouth 2 [place] capsule 00 (two) Medical times Branch daily. doxycycline 2021-0 Yes [id number] 100mg Take 1 Univers monohydrate 1-13 capsule by it y of 100 mg 00:00: mouth 2 [place] capsule 00 (two) Medical times Branch daily. doxycycline 2021-0 Yes [id number] 100mg Take 1 Univers monohydrate 1-13 capsule by it y of 100 mg 00:00: mouth 2 [place] capsule 00 (two) Medical times Branch daily. Methylpredn 0 2021- No [id number] 4mg Take 1 Univers isolone 4 -13 - tablet by ity of mg tablet 00:00: 05:59 mouth [place] 00 :00 every 12 Medical (twelve) Branch hours for 5 days. cyclobenzap 0 2021- No [id number] 10mg Take 1 Univers rine 10 mg [...] Time Observation Value Comments Source Systolic blood 2023-01-16 15:45:00 125 mm[Hg[facility] Diastolic blood 2023-01-16 15:45:00 87 mm[Hg] [facility] Heart rate 2023-01-16 15:45:00 80 /min [facility] Body temperature 2023-01-16 15:45:00 36.28 Joanna [facility] Respiratory rate 2023-01-16 15:45:00 18 /min [facility] [place] [facility] Body height 2023-01-16 15:45:00 152.4 cm [facility] [place] [facility] Body weight 2023-01-16 15:45:00 67.223 kg [facility] [place] [facility] BMI 2023-01-16 15:45:00 28.94 kg/m2 [facility] [place] [facility] Oxygen saturation in 2023-01-16 15:45:00 98 /min University of Arterial blood by [place] [facility] alonso Pulse oximetry Branch Systolic blood 2023-01-11 18:20:00 97 mm[Hg] Univer sity of pressure [place] [facility] Diastolic blood 2023-01-11 18:20:00 66 mm[Hg] Unive rsity of pressure [place] [facility] Heart rate 2023-01-11 18:20:00 72 /min [facility] [place] [facility] Body temperature 2023-01-11 18:20:00 36.11 Joanna [facility] [place] [facility] Respiratory rate 2023-01-11 18:20:00 18 /min [facility] [place] [facility] Body height 2023-01-11 18:20:00 152.4 cm [facility] [place] [facility] Body weight 2023-01-11 18:20:00 67.223 kg [facility] [place] [facility] BMI 2023-01-11 18:20:00 28.94 kg/m2 [facility] [place] [facility] Oxygen saturation in 2023-01-11 18:20:00 98 /min University of Arterial blood by [facility] alonso Pulse oximetry Branch Systolic blood 2022-09-21 19:34:00 134 mm[Hg] Univer sity of pressure [place] [facility] Diastolic blood 2022-09-21 19:34:00 85 mm[Hg] Unive rsity of pressure [place] [facility] Heart rate 2022-09-21 19:34:00 81 /min [facility] [place] [facility] Body temperature 2022-09-21 19:34:00 36.5 Joanna [facility] [place] [facility] Respiratory rate 2022-09-21 19:34:00 17 /min [facility] [place] [facility] Body height 2022-09-21 19:34:00 152.4 cm [facility] [place] [facility] Body weight 2022-09-21 19:34:00 67.331 kg [facility] [place] [facility] BMI 2022-09-21 19:34:00 28.99 kg/m2 [facility] [place] [facility] Oxygen saturation in 2022-09-21 19:34:00 99 /min University of Arterial blood by [facility] Pulse oximetry Branch Systolic blood 2022-06-20 23:31:00 132 mm[Hg] Univer sity of pressure [place] [facility] Diastolic blood 2022-06-20 23:31:00 84 mm[Hg] Unive rsity of pressure [place] [facility] Heart rate 2022-06-20 23:31:00 73 /min [facility] [place] [facility] Body temperature 2022-06-20 23:31:00 36.39 Joanna [facility] [place] [facility] Respiratory rate 2022-06-20 23:31:00 14 /min [facility] [place] [facility] Body height 2022-06-20 23:31:00 152.4 cm [facility] [place] [facility] Body weight 2022-06-20 23:31:00 69.655 kg [facility] [place] [facility] BMI 2022-06-20 23:31:00 29.99 kg/m2 [facility] [place] [facility] Oxygen saturation in 2022-06-20 23:31:00 99 /min University of Arterial blood by [facility] Pulse oximetry Branch Systolic blood 2022-04-24 18:45:00 117 mm[Hg] Univer sity of pressure [place] [facility] Diastolic blood 2022-04-24 18:45:00 79 mm[Hg] Unive rsity of pressure [place] [facility] Heart rate 2022-04-24 18:45:00 72 /min [facility] [place] [facility] Body temperature 2022-04-24 18:45:00 37.17 Joanna [facility] [place] [facility] Respiratory rate 2022-04-24 18:45:00 18 /min [facility] [place] [facility] Body height 2022-04-24 18:45:00 152.4 cm [facility] [place] [facility] Body weight 2022-04-24 18:45:00 68.357 kg [facility] [place] [facility] BMI 2022-04-24 18:45:00 29.43 kg/m2 [facility] [place] [facility] Oxygen saturation in 2022-04-24 18:45:00 97 /min University of Arterial blood by [facility] Pulse oximetry Branch Systolic blood 2021-10-19 20:41:00 103 mm[Hg] Univer sity of pressure [facility] Diastolic blood 2021-10-19 20:41:00 70 mm[Hg] Unive rsity of pressure [facility] Heart rate 2021-10-19 20:41:00 80 /min Universi ty of [facility] Body temperature 2021-10-19 20:41:00 35.67 Joanna Univ ersity of [facility] Respiratory rate 2021-10-19 20:41:00 18 /min Univ ersity of [facility] Body height 2021-10-19 20:41:00 152.4 [address] [facility] Body weight 2021-10-19 20:41:00 68.[address] [facility] BMI 2021-10-19 20:41:00 29.38 kg/m2 Universi ty [facility] Oxygen saturation in 2021-10-19 20:41:00 97 /min University of Arterial blood by [facility] Pulse oximetry Branch height 2021-08-03 11:20:00 60 [in_i] [facility] weight 2021-08-03 11:20:00 145 [lb_av] [facility] bmi 2021-08-03 11:20:00 28.32 kg/m2 [facility] Systolic blood 2021-06-09 20:04:00 93 mm[Hg] Univer sity of [facility] Diastolic blood 2021-06-09 20:04:00 65 mm[Hg] Unive rsity of [facility] Heart rate 2021-06-09 20:01:00 101 /min Universi ty of [facility] Body temperature 2021-06-09 20:01:00 36.5 Joanna Univ ersity of [facility] Respiratory rate 2021-06-09 20:01:00 16 /min Univ ersity of [facility] Body height 2021-06-09 20:01:00 152.[address] [facility] Body weight 2021-06-09 20:01:00 69.[address] [facility] BMI 2021-06-09 20:01:00 29.95 kg/m2 [facility] Oxygen saturation in 2021-06-09 20:01:00 97 /min University Arterial blood by [facility] Pulse oximetry Branch Procedures Procedure Date / Time Performed Performing Clinician Mckenna e POCT MOLECULAR STREP 2023-01-11 18:27:00 Unknown, Attending [facility] PATIENT FINANCIAL 2022-09-21 19:13:27 Doctor Unassigned, No [facility] POLICY Name [facility] XR HAND 3+ VW LEFT 2022-04-24 19:15:00 [facility] ASSIGNMENT OF BENEFITS 2022-04-24 16:57:32 Doctor Unassigned, No [facility] [id number] 2020-04-18 00:00:00 EKWTE [facility] [id number] 2020-04-18 00:00:00 EKWTE [facility] [id number] 2020-04-18 00:00:00 EKWTE [facility] [id number] 2020-04-18 00:00:00 MANVI.02 [facility] [id number] 2020-04-18 00:00:00 MANVI.02 [facility] Plan of Care Planned Activity Planned Date Details Comments Source Future Scheduled 2023-01-21 INFLUENZA VACCINE [facility] Test 10:41:04 (#1) [code = INFLUENZA VACCINE (#1)] Future Scheduled 2023-01-21 COVID-19 VACCINE [facility] Test 10:41:04 (#1) [code = COVID-19 VACCINE (#1)] Future Scheduled 2023-01-21 [facility] Test 10:41:04 malignant neoplasm of cervix (procedure) [code = 127487115] Future Scheduled 2022-11-12 COVID-19 VACCINE [facility] Test 00:28:34 (#1) [code = COVID-19 VACCINE (#1)] Future Scheduled 2022-11-12 [facility] Test 00:28:34 malignant neoplasm of cervix (procedure) [code = 123345302] Future Scheduled 2022-11-12 INFLUENZA VACCINE [facility] Test 00:28:34 [code = INFLUENZA VACCINE] Encounters Start End Encounter Admission Attending Care Care Encounter Source Date/Time Date/Time Type Type Clinicians Facility Department ID 2022-10-04 Outpatient Vernon, STLMLC STLMLC [id number] Common 10:32:02 Luis 63706 [facility] 2022-08-28 Outpatient Vernon, STLMLC STLMLC [id number] Common 16:22:01 Luis [id number] [facility] 2022-08-24 Outpatient Vernon, STLMLC STLMLC [id number] Common 14:22:00 Luis [id number] [facility] 2022-07-12 Outpatient Caroline, STLMLC STLMLC [id number] Common 15:33:01 Yovana 67270 [facility] 2022-07-05 Outpatient Caroline, STLMLC STLMLC [id number] Common 11:52:01 Yovana 77104 [facility] 2021-12-07 Outpatient Reynolds, Na STLMLC STLMLC [id number] Common 10:39:02 [facility] 2021-08-01 Outpatient Reynolds, Na STLMLC STLMLC [id number] Common 08:44:01 [facility] 2021-06-22 Outpatient Reynolds, Na STLMLC STLMLC [id number] Common 13:35:07 [facility] 2021-06-22 Outpatient Reynolds, Na STLMLC STLMLC [id number] 2 Common 13:05:48 [facility] 2020-05-06 Inpatient EL Ekwo, [facility] LD [id number] [facility] 21:47:00 Naty [facility] 2020-04-17 Inpatient Ekwo, [facility] DEVAUGHN [id number] [facility] 14:48:00 Naty 12 [facility] 2023-01-16 2023-01-16 Outpatient Nataly [facility] [id number] [facility] 10:20:00 11:03:31 REENU [facility] 2023-01-16 2023-01-16 Urgent Hernando Delong [facility] [id number] Univers 10:20:00 11:03:31 Care Unknown, Attending HEALTH [id number] ity of [place] [id number] Jagdish as NOÉ?BLEA [id number] [address] MEDICAL OFFICE [facility] 2023-01-11 2023-01-11 Urgent HilarioannemarieBernadine su [facility] 1.2.840.11 4 [id number] [facility] 13:00:00 13:20:00 Care Unknown, Attending HEALTH 350..13.10 ity of [place] 4.2.7.2.686 Jagdish as NOÉ?BLEA [phone] [address] OFFICE [facility] 2023-01-11 2023-01-11 Outpatient R DEVONTE [facility] [id number] Univers 13:00:00 13:00:00 BERNADINE [facility] 2022-11-23 2022-11-23 Nurse Nurse, [facility] 1.2.840.114 [id number] Univers 13:30:00 13:30:00 Visit Unknown, Attending HEALTH 350..13.10 ity of Kian Jimenez [place] 4.2.7.2.686 [place] NOÉ?BLEA [phone] [address] OFFICE [facility] 2022-11-23 2022-11-23 Outpatient R BARBARA [facility] [id number] Univers 13:30:00 13:27:48 KIAN [facility] 2022-09-21 2022-09-21 Urgent Kian Jimenez [facility] 1.2.840.114 [id number] Univers 14:00:00 14:20:00 Care Unknown, Attending HEALTH 350.1.13.10 [facility] 4.2.7.2.686 Jagdish as NOÉ?BLEA [phone] [address] MEDICAL OFFICE [facility] 2022-09-21 2022-09-21 Outpatient R BARBARA [facility] [id number] Univers 14:00:00 14:00:00 KIAN ity [facility] 2022-09-21 2022-09-21 Orders Doctor CANDY 1.2.840.114 [id number] Univers 00:00:00 00:00:00 Only Unassigned, MEÑO 350.1.13.10 ity of [place] [facility] 4.2.7.2.686 Jagdish as [phone] [address] 2022-07-19 2022-07-19 [facility] [id number] Univers 15:15:00 15:15:00 ARLENE ity [facility] 2022-07-05 2022-07-05 (TEL) STLMLC STLMLC [id number] Co mmon 00:00:00 00:00:00 [facility] 2022-06-22 2022-06-22 (TEL) STLMLC STLMLC [id number] Co mmon 00:00:00 00:00:00 [facility] 2022-06-20 2022-06-20 Outpatient Nataly DELONG [facility] [id number] Univers 17:20:00 18:05:48 REENU ity [facility] 2022-06-20 2022-06-20 Urgent Hernando Delong [facility] 1.2.840.11 4 [id number] Univers 17:20:00 18:05:48 Care Unknown, Attending HEALTH 350.1.13.10 ity of [place] 4.2.7.2.686 Jagdish as NOÉ?BLEA [id number] [address] MEDICAL OFFICE [facility] 2022-06-20 2022-06-20 Letter hColo [facility] 1.2.800.425 [id number] Univers 00:00:00 00:00:00 (Out) [facility] 350.1.13.10 it y of [place] 4.2.7.2.686 Jagdish as NOÉ?BLEA [phone] [address] MEDICAL OFFICE [facility] 2022-05-04 2022-05-04 Telephone Provider, [facility] 1.2.840.114 [id number] Univers 00:00:00 00:00:00 Ang Db HEALTH 350.1.13.10 it y of [facility]gent [facility] 4.2.7.2.686 [place] NOÉ?BLEA [phone] [facility] [address] MEDICAL OFFICE BUILDING 2022-04-24 2022-04-24 [facility] 1.2.840.114 [id number] Univers 12:57:59 23:59:00 Encounter Berny Rob HEALTH 350.1.13.10 ity of [place] 4.2.7.2.686 Jagdish as NOÉ?BLEA [phone] [facility] [address] MEDICAL OFFICE [facility] 2022-04-24 2022-04-24 Outpatient R [facility] [id number] Univers 12:57:59 23:59:00 K[address]QUA ity of [facility] 2022-04-24 2022-04-24 Urgent Berny Mitchell [facility] 1.2. 840.114 [id number] Univers 11:00:00 13:28:36 Care Unknown, Attending [facility] 350.1.13.10 ity of [place] 4.2.7.2.686 Jagdish as NOÉ?BLEA [phone] [address] OFFICE [facility] 2022-04-24 2022-04-24 Orders Doctor CANDY 1.2.840.114 [id number] Univers 00:00:00 00:00:00 Only Unassigned, MEÑO 350.1.13.10 ity of [place] [facility] 4.2.7.2.686 Jagdish as [phone] [address] 2022-04-24 2022-04-24 [facility] 1.2.826.421 [id number] Univers 00:00:00 00:00:00 (Out) Berny Rob HEALTH 350.1.13.10 ity of [facility] 4.2.7.2.686 Jagdish as NOÉ?BLEA [phone] [facility] [address] MEDICAL OFFICE BUILDING 2022-02-03 2022-02-03 [facility] [id number] Co mmon 00:00:00 00:00:00 VISIT EST Spir it PT LEVEL 3 - [facility] 2022-02-01 2022-02-01 (TEL) STLMLC STLMLC [id number] Co mmon 00:00:00 00:00:00 [facility] 2021-10-19 2021-10-19 Urgent Brandonionspencer [facility] 1.2.840.114 [id number] Univers 15:40:00 16:00:00 Care [facility] HEALTH 350.1.13.10 it y of [place] 4.2.7.2.686 Jagdihs as NOÉ?BLEA [phone] [address] MEDICAL OFFICE BUILDING 2021-10-19 2021-10-19 Outpatient R [facility]BARA [facility] [id number] Univers 15:40:00 15:40:00 [facility] 2021-08-04 2021-08-04 (TEL) STLMLC STLMLC [id number] Co mmon 00:00:00 00:00:00 [facility] 2021-08-03 2021-08-03 OFFICE STLMLC STLMLC [id number] Co mmon 00:00:00 00:00:00 VISIT EST Spir it PT LEVEL 3 - [facility] 2021-06-29 2021-06-29 (TEL) STLMLC STLMLC [id number] Co mmon 00:00:00 00:00:00 [facility] 2021-06-10 2021-06-10 Telephone Sd Haerd [facility] 1.2.840.114 [id number] Univers 00:00:00 00:00:00 HEALTH 350.1.13.10 it y of [place] 4.2.7.2.686 Jagdish as NOÉ?BLEA [phone] [address] MEDICAL OFFICE BUILDING 2021-06-09 2021-06-09 Urgent Sd Heard Hua [facility] 1.2.840.114 [id number] Univers 14:00:00 14:26:40 Care Barbara, [facility] HEALTH 350.1.13.10 ity of [place] 4.2.7.2.686 Jagdish as NOÉ?BLEA [phone] [address] MEDICAL OFFICE [facility] 2021-06-09 2021-06-09 Outpatient R [facility]A [facility] [id number] Univers 14:00:00 14:26:40 KIAN [facility] 2021-06-09 2021-06-09 Outpatient R [facility] [id number] Univers 14:00:00 14:00:00 KIAN [facility] 2021-06-09 2021-06-09 Letter Sd Heard [facility] 1.2.840.114 [id number] Univers 00:00:00 00:00:00 (Out) C HEALTH 350.1.13.10 it y of [place] 4.2.7.2.686 Jagdish as NOÉ?BLEA [phone] [address] OFFICE [facility] 2021-01-11 2021-01-11 Outpatient R WON [facility] [id number] Univers 15:30:00 15:30:00 [facility] 2021-01-11 2021-01-11 [facility] 1.2.253.678 [id number] Univers 00:00:00 00:00:00 [facility] 350.1.13.10 it y of [place] 4.2.7.2.686 Jagdish as Noé?Blea [phone] [facility] [address] Medical Office [facility] 2021-01-11 2021-01-11 Orders Doctor GUPTA 1.2.840.114 [id number] Univers 00:00:00 00:00:00 Only Unassigned, MEÑO 350.1.13.10 ity of [place] [facility] 4.2.7.2.686 Jagdish as [phone] [address] 2021-01-11 2021-01-11 Letter Won [facility] 1.2.840.114 [id number] Univers 00:00:00 00:00:00 (Out) [facility] 350.1.13.10 it y of [place] 4.2.7.2.686 Jagdish as Noé?Blea [phone] [address] Medical Office [facility] 2020-11-25 2020-11-25 Outpatient STLMLC STLC [id number] Common 00:00:00 00:00:00 [facility] 2020-10-14 2020-10-[address] [facility] [id number] Common 00:00:00 00:00:00 [facility] 2019-07-29 2019-07-29 Outpatient KADEEM Brett [facility] [id number] [address] [place] [address] 00:00:00 00:00:00 CHIP Chapin Method i st Results Test Description Test Time Test Comments Results Result Comments Source POCT MOLECULAR STREP 2023-01-11 18:34:20 Test Item Value Reference Range Interpretation Comme nts POCT Molecular Strep (test code = 99266-7) Negative Negative Lab Interpretation (test code = 95978-4) [facility] [id number] 11:45:00 Test Item Value Reference Range Interpretation Comments PLACENTA THIRD TRIMESTER (test code = PLACIII) RUN DATE: 05/27/20 [facility] PAGE 1 RUN TIME: 1323 Specimen Inquiry RUN USER: INTERFACE LINDA ENT: EDWIGE HART LOC: ANNALISA U #: [id number] AGE/SX: 35/F ROOM: [facility] RE04/17/20REG DR: Naty Mckeon MD : 87 BED: A DIS: 04/19/20 STATUS: DIS IN TLOC: SPEC #: [id number] RECD: 04/19/20 STATUS: YEN KAPLAN #: [id number] YOVANI: 04/19/20 DR: Naty Mckeon MD ENTERED: 04/19/20 SP TYPE: PLACIII OTHR DR: ORDERED: LEVEL V SURGICA CODES: [id number] - PLACENTA, NOS PROCEDURES: LEVEL V SURGICA (Incomplete) TISSUES: PLACENTA, NOS - PLACENTA CLINICAL HISTORY 35 year old, 37.3 weeks, L1, vaginal delivery, gestational diabetes, VSD (wpd) FINAL DIAGNOSIS Placenta, osborn gestation (37.3 weeks): - third trimester villous architecture - mild increase in perivillous fibrinoid, patchy - umbilical cord: insertion 5 cm from margin, 3-vessel, 45 cm length - placental weight: actual 395 gms/expected mean 467 gms (25-50th percentile) CPT Code: 30053 cds/wpd GROSS DESCRIPTION The specimen was received in a container, labeled with the patient's name, unit number and designated "placenta". The following attributes are observed: Cord insertion: 5 cm from margin Cord length: 45 cm (one segment detached) Number of vessels: 3 Cord color: Marino-white Other cord findings: None surface findings: Blue-purple, wrinkled, glistening Vasculature: Unremarkable blood vasculature Membranes rupture site: 10 cm to margin Membrane color: Marino-pink Other membrane findings: Semi-translucent The trimmed placental weight: 395 gm Disk measurement: 18 x 17 x 4 cm in greatest dimension Accessory lobes: None CONTINUED ON NEXT PAGE RUN DATE: 05/27/20 [facility] PAGE 2 RUN TIME: 1323 Specimen Inquiry RUN USER: INTERFACE SPEC #: [id number] PATIENT: EDWIGE HART #[id number] (Continued) ------- GROSS DESCRIPTION (Continued) Maternal surface: Lobulated and focally disrupted, completeness cannot be determined Parenchyma: Red-brown and spongy Parenchyma lesions: None Cassettes: A1 through A4 ana/glendy 04/19/20 RE1 and RE2 surface, RE3 membranes. tank 04/26/20 ---- Signed John Westfall 04/26/20 1145 END OF REPORT [id number] 16:10:00 Test Item Value Reference Range Interpretation Comments GLUBED (test code = GLUBED) 80 mg/dL 65-110 N [id number] 16:10:00 Test Item Value Reference Range Interpretation Comments GLUBED (test code = GLUBED) 71 mg/dL 65-110 N RUPTURE OF [id number] 08:07:00 Test Item Value Reference Range Interpretation Comments RUPTURE OF MEMBRANES (test code = RUPTURED ROM) HGB [id number] 07:56:00 Test Item Value Reference Range Interpretation Comments HEMOGLOBIN (test code = 8.5 g/dL 10.7-13.9 L Resu lts verified by HGB) repeat analysis HEMATOCRIT (test code = 26.0 % 32.1-42.1 L Resu lts verified by HCT) repeat analysis [id number] 18:52:00 Test Item Value Reference Range Interpretation Comments GLUCOSE (test code = GLU) 140 mg/dL 65-110 H AG HEPATITIS B [id number] 17:35:00 Test Item Value Reference Range Interpretation Comments AG HEPATITIS B SURFACE (test code NONREACTIVE NONREACTIVE = HBSAG) IS CONSENT FORM SIGNED FOR HIV TESTING? YAB HEPATITIS C [id number] 17:35:00 Test Item Value Reference Range Interpretation Comments AB HEPATITIS C (test code = NONREACTIVE NONREACTIVE HCVAB) SIGNAL TO CUTOFF (test code = 0.06 <0.80 N CUTOFF) IS CONSENT FORM SIGNED FOR HIV TESTING? YAB [id number] 17:35:00 Test Item Value Reference Range Interpretation Comments AB TREPONEMA (test code = TREPAB) NONREACTIVE NONREACTIVE IS CONSENT FORM SIGNED FOR HIV TESTING? YAB HIV 1 17:35:00 Test Item Value Reference Range Interpretation Comments AB HIV 1 2 (test NONREACTIVE NONREACTIVE [facility] code = [id number]) 4th Gen HIV Ag/Ab Combo Screen IS CONSENT FORM SIGNED FOR HIV TESTING? YAG HEPATITIS B [id number] 17:18:00 Test Item Value Reference Range Interpretation Comments AG HEPATITIS B SURFACE (test code NONREACTIVE NONREACTIVE = HBSAG) IS CONSENT FORM SIGNED FOR HIV TESTING? YAB HEPATITIS C [id number] 17:18:00 Test Item Value Reference Range Interpretation Comments AB HEPATITIS C (test code = HCVAB) NONREACTIVE SIGNAL TO CUTOFF (test code = CUTOFF) <0.80 IS CONSENT FORM SIGNED FOR HIV TESTING? YAB [id number] 17:18:00 Test Item Value Reference Range Interpretation Comments AB TREPONEMA (test code = TREPAB) NONREACTIVE NONREACTIVE IS CONSENT FORM SIGNED FOR HIV TESTING? YAB HIV 1 17:18:00 Test Item Value Reference Range Interpretation Comments AB HIV 1 2 (test code = XSG23SA) NONREACTIVE IS CONSENT FORM SIGNED FOR HIV TESTING? YCBC W/AUTO [id number] 16:34:00 Test Item Value Reference Range Interpretation [...] code = PLTMR) COVID 19 Asymptomatic IH [id number] 15:50:00 Test Item Value Reference Range Interpretation [...] of Accreditation. This test is only authori zed for the duration of thedeclaration that circumstances e xist justifying theauthorizatio n of emergency use o f in vitro diagnostic test sfor detection and/o r diagnosis of CO VID-19 under Biqyeku64 4(b)(1) of the Act, 21 U.S .C. 360bbb-3(b)(1), unless theauthorizatio n is terminated or r evoked sooner. Notes Date/Time Note Provider Source 2020-04-19 11:24:00-00:00 [facility] OB Disch REPORT#:[id number] REPORT STATUS: Signed DATE:04/19/20 TIME: 1123 PATIENT: EDWIGE HART UNIT #: [id number] ROOM/BED: [address] : 87 AGE: 35 SEX: F ATTEND: Luis Antonio Mckeon pe, MD ADM AUTHOR: Naty Mckeon MD * ALL edits or amendments must be made on the [employer]/computer document * Subjective Subjective Admission EGA: Weeks: [...] Pulse Ox FiO2 04/18 97.9 79 20 71 Last Documented: Result Date Time B/P 04/18 Temp 97.9 04/18 2330 Pulse 79 04/18 2330 Resp 20 04/18 2330 Pulse Ox 98 04/18 0805 B/P Mean 87.0 04/18 0754 Patient Weight Weight (lb): 157 Weight (oz): Weight (kg): 71.724547 Physical Exam Breasts: Breasts: normal, non-tender, soft [...] % (Auto) (14.3 - 34.3 %) 17.9 Isabella % (Auto) (5.1 - 10.4 %) 4.6 L Eos % (Auto) (0.1 - 3.0 %) 1.2 Baso % (Auto) (0.1 - 1.0 %) 0.3 Neut # (Auto) (K/mm3) 8.9 Lymph # (Auto) (K/mm3) 2.1 Isabella # (Auto) (K/mm3) 0.5 Eos # (Auto) (K/mm3) 0.14 Baso # (Auto) (K/mm3) 0.0 Other Body Source Membranes Rupture RUPTURED Serology Treponema pallidum Ab (NONREACTIVE) NONREACTIVE Hep [...] Feeding preference: Gender A: Female 1 minute A: 8 5 minutes infant A: 9 10 minutes A: Provider comments on imported nursing data: [] Discharge Instructions Diet: Regular Activity: No [place] for 6 Wks, Nothing in v agina [...] Naty Mckeon MD on at 1158 RPT #:[id number] END OF REPORT 2020-04-18 07:58:00-00:00 [facility] Clinical Note REPORT#:[id number] REPORT STATUS: Signed DATE:04/18/20 TIME: 075 PATIENT: EDWIGE HART UNIT #: [id number] ROOM/BED: [address] : 87 AGE: 35 SEX: F ATTEND: Luis Antonio Mckeon pe, MD ADM AUTHOR: Ashlyn Mondragon MD * ALL edits or amendments must be made on the el [employer]/computer document * Clinical Note Note: I was [...] hemostasis after suturing Rectal Cytotec placed at 6519 RPT #:[id number] END OF REPORT 2020-04-18 04:39:00-00:00 [facility]) OB Delivery Note REPORT#:[id number] REPORT STATUS: Signed DATE:04/18/20 TIME: 438 PATIENT: EDWIGE HART UNIT #: [id number] ROOM/BED: [address] : 87 AGE: 35 SEX: F ATTEND: Luis Antonio Mckeon pe, MD ADM AUTHOR: Naty Mckeon MD * ALL edits or amendments must be made on the el [employer]/computer document * OB Delivery Nursing Documentation Review Nursing data: The data set between the solid lines has been im ported from nursing documentation. Any exceptions have been noted be low under Provider comments. _ ROM date: 04/17/20 ROM time: 529 Membranes rupture method: SROM Amniotic fluid color: Clear Amniotic fluid amount: Steroids prior to arrival: Antibiotic prophylaxis given: evaluation at delivery: Delivery date A: Delivery time infant A: Birthweight (gm) infant A: Weight (lb) A: 6 Weight (oz) A: 9 Gender infant A: Female 1 minute A: 8 5 minutes infant A: 9 10 minutes A: Cord pH obtained A: Vacuum time A: Vacuum # pulls A: Vacuum # popoffs A: QBL at delivery: __ Provider comments on imported nursing data: [] Pre-delivery GBS status: GBS status: negative [place] evaluation at delivery: NICU Admission EGA: Weeks: 37 Days: 2 EGA at delivery (wks/days): 37 weeks (3 days) Baby A Information Baby A information Delivery date: 04/18/20 Delivery time: 420 status: live born Wt of baby (lbs/oz): 6#9oz Gender: male 1 minute: 8 5 minutes: 9 Presentation: vertex Additional comments: Uncomplicated vaginal delivery of live male infa nt PIEDAD with right shoulder anterior. Shoulders and body delivered without d ifficulty. Vigorous placed on maternal abdomen, jacd-ag-vuob . Cord clamped and cut, and cord blood was obtained. Placenta delivered with ge ntle traction and suprapubic pressure, intact upon inspection. IV p itocin administered prophylactically. Second degree laceration was repaired in a running, lo cked fashion using 2-0 chromic suture. Hemostasis achieved. EBL 350 cc. A vaginal exam was negative for sponges. Counts correct. Mother and infant stable. No complicati ons. Vaginal Delivery Vaginal delivery: Labor: induced Medications/Devices used: oxytocin Vaginal delivery: spontaneous Amniotic fluid: clear Anesthesia type: epidural anesthesia Laceration repair: yes, 2-0 suture Placenta: spontaneous Post delivery meds used: oxytocin Count: correct, vag exam neg for sponges Mother's condition: mother stable Infant's condition: infant stable in room Lacerations: Perineal laceration(s): 2nd Degree Blood Loss/Details Blood loss at delivery: <1000 ml EBL at delivery (ml's): 350 Electronically Signed by Naty Mckeon MD on at 0442 RPT #:[id number] END OF REPORT 2020-04-18 03:24:00-00:00 [facility]) OB Admission / H P REPORT#:[id number] REPORT STATUS: Signed DATE:04/18/20 TIME: 323 PATIENT: EDWIGE HART UNIT #: [id number] ROOM/BED: [address] : 87 AGE: 35 SEX: F ATTEND: Luis Antonio Mckeon pe, MD ADM AUTHOR: Naty Mckeon MD * ALL edits or amendments must be made on the [employer]/computer document * OB History Chief complaint: suspected [...] Mean 86.0 04/18 0256 B/P 121/62 04/18 0256 Pulse 62 04/18 0256 Temp 97.8 04/172 Resp 16 04/17 190 Vital Signs Date Temp Pulse Resp B/P B/P Mean Pulse Ox FiO2 04/17-04/18 97.7-98.8 53-88 16-18 111-149/60-96 82.0-108.0 Patient Weight Weight (lb): 157 Weight (oz): Weight (kg): 71.394695 Physical Exam HEENT: normocephalic w/o injury Cardiac: [...] % (Auto) (14.3 - 34.3 %) 17.9 Isabella % (Auto) (5.1 - 10.4 %) 4.6 L Eos % (Auto) (0.1 - 3.0 %) 1.2 Baso % (Auto) (0.1 - 1.0 %) 0.3 Neut # (Auto) (K/mm3) 8.9 Lymph # (Auto) (K/mm3) 2.1 Isabella # (Auto) (K/mm3) 0.5 Eos # (Auto) [...] Naty Mckeon MD on at 0346 RPT #:[id number] END OF REPORT
[2023-01-26] MEDS ORDERED: PROMETHAZINE INJ 25 MG/ML AMP ONE (16:28)
[2023-01-26] MEDS ORDERED: dexAMETHasone 10 MG/ML VIAL ONE (16:28)
[2023-01-26] MEDS ORDERED: EPINEPHRINE/PF 1 MG/ML AMP ONE (16:28)
[2023-01-26] MEDS ORDERED: NA CHLORIDE 0.9% 250 ML ONE (16:28)
[2023-01-26] MEDS ORDERED: NA CHLORIDE 0.9% 1,000 ML ONE (16:29)
[2023-01-26] MEDS ORDERED: FAMOTIDINE 20 MG/2 ML VIAL IV ONE (16:29)
--- NOTE | 2023-01-26 20:09 | ER ---
Nurse's Notes [facility] Name: Leigh Ya Age: 37 yrs Sex: Female : 1985 Arrival Date: 01/26/2023 Time: 16:03 Bed 10 Private MD: Diagnosis: Allergy to other foods-avocado Presentation: 01/26 16:06 Chief complaint: Patient states: Itching all over. Believes it was the avocado she ate nj1 about 30 min ago. Took a benadryl and a couple prednisones prior to arrival. 16:06 Coronavirus screen: Vaccine status: Patient reports being unvaccinated. Ebola Screen: [facility] Patient denies travel to an Ebola-affected area in the 21 days before illness onset. Onset: The symptoms/episode began/occurred acutely, suddenly, 30 minute(s) ago. Anaphylaxis evaluation, the patient reports or I have noted the following symptoms which indicate a significant risk of anaphylaxis: urticaria. Initial Sepsis Screen:. Risk Assessment: Do you want to hurt yourself or someone else? Patient reports no desire to harm self or others. Onset of symptoms was January 26, 2023 at 15:30. 16:06 Method Of Arrival: Ambulatory [facility] 16:06 Acuity: MACI 2 nj1 20:52 Initial Sepsis Screen: Does the patient meet any 2 criteria? No. Patient's initial md1 sepsis screen is negative. Does the patient have a suspected source of infection? No. Patient's initial sepsis screen is negative. Historical: - PMHx: 16:40 Anxiety; me1 - PSHx: 16:40 breast reduction; sinus surgery; Tonsillectomy; me1 - Immunization history:: Adult Immunizations up to date. - Social history:: Smoking status: Patient denies any tobacco usage or history of. Screenin:40 [facility] ED Fall Risk Assessment (Adult) History of falling in the last 3 months, me1 including since admission No falls in past 3 months (0 pts) Confusion or Disorientation No (0 pts) Intoxicated or Sedated No (0 pts) Impaired Gait No (0 pts) Mobility Assist Device Used No (0 pt) Altered Elimination No (0 pt) Score/Fall Risk Level 0 - 2 = Low Risk. Abuse screen: Denies threats or abuse. Nutritional screening: No deficits noted. Tuberculosis screening: No symptoms or risk factors identified. Assessment: 16:37 General: Appears uncomfortable, well groomed, well developed, well nourished, Behavior me1 is cooperative, appropriate for age, anxious, restless, Reports having an allergic reaction to something. She thinks it was an avocado. Itching all over with red, raised rash to torso and neck. Pain: Denies pain. Neuro: Level of Consciousness is awake, alert, obeys commands, Oriented to person, place, time, situation, Appropriate for age. Cardiovascular: Capillary refill < 3 seconds Patient's skin is warm and dry. Respiratory: Airway is patent Respiratory effort is even, unlabored. Derm: Rash noted that is red, raised, on generalized torso and neck. 17:17 Reassessment: Patient is alert, oriented x 3, equal unlabored respirations, skin me1 warm/dry/pink. Rash is improving. Denies itching at this time. Able to rest comfortably with no complaints. 18:42 Reassessment: Patient is alert, oriented x 3, equal unlabored respirations, skin me1 warm/dry/pink. 19:49 Reassessment: Patient is alert, oriented x 3, equal unlabored respirations, skin me1 warm/dry/pink. Vital Signs: 16:06 BP 104 / 82; Resp 18; Temp 98.4(O); Weight 66.22 kg; Height 5 ft. 0 in. ; nj1 16:40 BP 112 / 82; Pulse 93; Resp 24; Pulse Ox 98% on R/A; me1 17:17 BP 95 / 56; Pulse 100; Resp 24; Pulse Ox 98% on R/A; me1 18:42 BP 109 / 76; Pulse 72; Resp 17; Pulse Ox 94% on R/A; me1 19:50 BP 96 / 65; Pulse 60; Resp 16; Pulse Ox 98% on R/A; me1 20:52 BP 108 / 77; Pulse 66; Resp 16; Pulse Ox 99% on R/A; me1 16:06 Body Mass Index 28.51 (66.22 kg, 152.4 cm) [facility] ED Course: 16:04 Patient arrived in ED. im 16:08 Jose Alejandro Vela MD is Attending Physician. rn 16:08 Sarah Rocha FNP-C [facility]. snw 16:14 Jenny Hair, RN is Primary Nurse. me1 16:34 Inserted saline lock: 20 gauge in right hand, using aseptic technique. me1 16:40 No provider procedures requiring assistance completed. Flushed right hand. me1 16:40 Patient has correct armband on for positive identification. Fall risk band placed. Bed me1 in low position. Call light in reach. Side rails up X2. Provided Education on: POC. Verbalized understanding. . 16:41 Triage completed. nj1 16:41 Arm band placed on. nj1 20:52 IV discontinued, intact, bleeding controlled, No redness/swelling at site. Pressure me1 dressing applied. Administered Medications: 16:22 Drug: EPINEPHrine 1:1000 Sub-Q 1:1,000 0.3 ml Route: Sub-Q; Site: left upper arm; snw 17:30 Follow up: Response: No adverse reaction; Marked relief of symptoms me1 20:53 Follow up: Response: No adverse reaction; Marked relief of symptoms me1 16:35 Drug: Promethazine IVP 25 mg Route: IVP; Site: right hand; me1 17:30 Follow up: Response: No adverse reaction me1 16:35 Drug: NS 0.9% IV 250 ml Route: IV; Rate: bolus; Site: right hand; me1 16:36 Drug: NS 0.9% IV 1000 ml Route: IV; Rate: 1 bolus; Site: right hand; me1 17:30 Follow up: IV Status: Completed infusion; IV Intake: 1000ml me1 16:36 Drug: Famotidine IVP 20 mg Route: IVP; Site: right hand; me1 17:30 Follow up: Response: No adverse reaction me1 16:36 Drug: Decadron - Dexamethasone IVP 10 mg Route: IVP; Site: right hand; me1 17:30 Follow up: Response: No adverse reaction me1 Medication: 16:40 VIS not applicable for this client. me1 Intake: 17:30 IV: 1000ml; Total: 1000ml. me1 Outcome: 20:09 Discharge ordered by . snw 20:52 Discharged to home ambulatory, with family. me1 20:52 Condition: stable 20:52 Discharge instructions given to patient, significant other, Instructed on discharge instructions, follow up and referral plans. medication usage, Demonstrated understanding of instructions, follow-up care, medications. 20:53 Patient left the ED. me1 Signatures: Sraah Rocha, [employer]ADDLE TRUCK DRIVER-C [employer]LE TRUCK DRIVER-Csnw Jose Alejandro Vela MD MD rn Jaco, Norma, RN RN nj1 Cleopatra Méndez Michelle RN RN me1
--- NOTE | 2023-01-26 20:09 | EDPHYS ---
Physician Documentation [facility] Name: Leigh Ya Age: 37 yrs Sex: Female : 1985 Arrival Date: 01/26/2023 Time: 16:03 Bed 10 Private MD: ED Physician Jose Alejandro Vela HPI: 01/26 16:43 This 37 yrs old Female presents to ER via Ambulatory with complaints of Allergic snw Reaction. 16:43 This 37 yrs old Female presents to ER via Ambulatory with complaints of Allergic snw Reaction. 16:43 The patient presents with diffuse swelling, itching, rash, redness of skin, nausea. snw Onset: The symptoms/episode began/occurred suddenly, just prior to arrival. Associated signs and symptoms: Pertinent positives: hives, nausea, rash, swelling. Possible causes: Avocado. At home the patient or guardian has treated the symptoms with Benadryl, steroids. Severity of symptoms: At their worst the symptoms were severe in the emergency department the symptoms are unchanged. The patient has experienced a previous episode. The patient has not recently seen a physician. Historical: - PMHx: 16:40 Anxiety; me1 - PSHx: 16:40 breast reduction; sinus surgery; Tonsillectomy; me1 - Immunization history:: Adult Immunizations up to date. - Social history:: Smoking status: Patient denies any tobacco usage or history of. ROS: 16:11 Constitutional: Negative for fever, chills, and weight loss, Eyes: Negative for injury, snw pain, redness, and discharge, ENT: Negative for injury, pain, and discharge, Neck: Negative for injury, pain, and swelling, Cardiovascular: Negative for chest pain, palpitations, and edema, Respiratory: Negative for shortness of breath, cough, wheezing, and pleuritic chest pain, Abdomen/GI: Negative for abdominal pain, nausea, vomiting, diarrhea, and constipation, Back: Negative for injury and pain, : Negative for injury, bleeding, discharge, and swelling, MS/Extremity: Negative for injury and deformity, Neuro: Negative for headache, weakness, numbness, tingling, and seizure, Psych: Negative for depression, anxiety, suicide ideation, homicidal ideation, and hallucinations. 16:11 Skin: Positive for rash, diffusely. Exam: 16:10 Head/Face: Normocephalic, atraumatic. Eyes: Pupils equal round and reactive to light, snw extra-ocular motions intact. Lids and lashes normal. Conjunctiva and sclera are non-icteric and not injected. Cornea within normal limits. Periorbital areas with no swelling, redness, or edema. ENT: Nares patent. No nasal discharge, no septal abnormalities noted. Tympanic membranes are normal and external auditory canals are clear. Oropharynx with no redness, swelling, or masses, exudates, or evidence of obstruction, uvula midline. Mucous membranes moist. Neck: Trachea midline, no thyromegaly or masses palpated, and no cervical lymphadenopathy. Supple, full range of motion without nuchal rigidity, or vertebral point tenderness. No Meningismus. Chest/axilla: Normal chest wall appearance and motion. Nontender with no deformity. No lesions are appreciated. 16:10 Respiratory: Lungs have equal breath sounds bilaterally, clear to auscultation and percussion. No rales, rhonchi or wheezes noted. No increased work of breathing, no retractions or nasal flaring. Abdomen/GI: Soft, non-tender, with normal bowel sounds. No distension or tympany. No guarding or rebound. No evidence of tenderness throughout. Back: No spinal tenderness. No costovertebral tenderness. Full range of motion. MS/ Extremity: Pulses equal, no cyanosis. Neurovascular intact. Full, normal range of motion. Neuro: Awake and alert, GCS 15, oriented to person, place, time, and situation. Cranial nerves II-XII grossly intact. Motor strength 5/5 in all extremities. Sensory grossly intact. Cerebellar exam normal. Normal gait. Psych: Awake, alert, with orientation to person, place and time. Behavior, mood, and affect are within normal limits. 16:10 Constitutional: The patient appears alert, awake, in obvious distress, moderately distressed, restless, uncomfortable. 16:10 Cardiovascular: Rate: tachycardic, Heart sounds: normal. 16:10 Skin: Appearance: Color: erythematous, Temperature: normal temperature, Moisture: normal moisture, rash a severe rash is noted, urticaria. Vital Signs: 16:06 BP 104 / 82; Resp 18; Temp 98.4(O); Weight 66.22 kg; Height 5 ft. 0 in. ; nj1 16:40 BP 112 / 82; Pulse 93; Resp 24; Pulse Ox 98% on R/A; me1 17:17 BP 95 / 56; Pulse 100; Resp 24; Pulse Ox 98% on R/A; me1 18:42 BP 109 / 76; Pulse 72; Resp 17; Pulse Ox 94% on R/A; me1 19:50 BP 96 / 65; Pulse 60; Resp 16; Pulse Ox 98% on R/A; me1 20:52 BP 108 / 77; Pulse 66; Resp 16; Pulse Ox 99% on R/A; me1 16:06 Body Mass Index 28.51 (66.22 kg, 152.4 cm) nj1 Procedures: 16:20 Peripheral line: by aseptic technique a peripheral line was placed in the right hand snw vein. MDM: 16:08 Patient medically screened. snw 16:42 Differential diagnosis: anaphylaxis, angioedema, bronchospasm, urticaria. Data snw reviewed: vital signs, nurses notes. I considered the following discharge prescriptions or medication management in the emergency department Medications were administered in the Emergency Department. See MAR. Counseling: I had a detailed discussion with the patient and/or guardian regarding the historical points, exam findings, and any diagnostic results supporting the discharge/admit diagnosis, the need for outpatient follow up, for definitive care, to return to the emergency department if symptoms worsen or persist or if there are any questions or concerns that arise at home. Response to treatment: the patient's symptoms have markedly improved after treatment. Special discussion: Based on the history and exam findings, there is no indication for further emergent testing or inpatient evaluation. I discussed with the patient/guardian the need to see the health evaluator for further evaluation of the symptoms. 20:13 Response to treatment: the patient's condition has returned to base line. snw Administered Medications: 16:22 Drug: EPINEPHrine 1:1000 Sub-Q 1:1,000 0.3 ml Route: Sub-Q; Site: left upper arm; snw 17:30 Follow up: Response: No adverse reaction; Marked relief of symptoms me1 20:53 Follow up: Response: No adverse reaction; Marked relief of symptoms me1 16:35 Drug: Promethazine IVP 25 mg Route: IVP; Site: right hand; me1 17:30 Follow up: Response: No adverse reaction me1 16:35 Drug: NS 0.9% IV 250 ml Route: IV; Rate: bolus; Site: right hand; me1 16:36 Drug: NS 0.9% IV 1000 ml Route: IV; Rate: 1 bolus; Site: right hand; me1 17:30 Follow up: IV Status: Completed infusion; IV Intake: 1000ml me1 16:36 Drug: Famotidine IVP 20 mg Route: IVP; Site: right hand; me1 17:30 Follow up: Response: No adverse reaction me1 16:36 Drug: Decadron - Dexamethasone IVP 10 mg Route: IVP; Site: right hand; me1 17:30 Follow up: Response: No adverse reaction me1 Disposition Summary: 01/26/23 20:09 Discharge Ordered Location: Home snw Condition: Stable snw Diagnosis - Allergy to other foods - avocado snw Followup: snw - With: Emergency Department - When: As needed - Reason: Worsening of condition Followup: snw - With: Private Physician - When: 2 - 3 days - Reason: Recheck today's complaints, Continuance of care, Re-evaluation by your physician Discharge Instructions: - Discharge Summary Sheet snw - Allergies, Adult snw - How to Use an Auto-Injector Pen snw - Food Allergy snw Forms: - Medication Reconciliation Form snw - Thank You Letter snw - Antibiotic Education snw - Prescription Opioid Use snw - Patient Portal Instructions snw - Leadership Thank You Letter snw Prescriptions: - epinephrine 0.15 mg/0.3 mL Injection Auto-Injector - administer 0.6 milliliter by INTRAMUSCULAR route every 5 to 15 minutes as snw needed for anaphylaxis; not to exceed 6 doses per episode; 2 pen; Refills: 0, Product Selection Permitted - Zyrtec 10 mg Oral Tablet - take 1 tablet by ORAL route once daily As needed; 20 tablet; Refills: 0, snw Product Selection Permitted - Prednisone 20 mg Oral Tablet - take 2 tablets by ORAL route once daily for 5 days; 10 tablet; Refills: 0, snw Product Selection Permitted - Pepcid 20 mg Oral Tablet - take 1 tablet by ORAL route once daily; 20 tablet; Refills: 0, Product snw Selection Permitted Addendum: 01/29/2023 07:00 Co-signature as Attending Physician, Jose Alejandro Vela MD I reviewed the patient's care r n provided by the Advanced Practice Provider and agree with the diagnosis and treatment plan. Signatures: Sarah Rocha, MARGARITA-Hua MGMT SPECIALIST-Csnw Jose Alejandro Vela MD MD rn Eddleman, Michelle, RN RN me1
[2023-01-26 21:30] VITALS: TEMP 98.4
[2023-01-26 21:40] VITALS: BP 108/77; O2SAT 99
== END 2023-01-26 20:53 | disposition home or self-care (01) ==
LOC: ER 16:03
PROC: 05HB33Z Insertion of Infusion Device into Right Basilic Vein, Percutaneous Approach (ICD-10-PCS; principal; 2023-01-26)
DX: L50.9 Urticaria, unspecified (principal); R11.0 Nausea; Z91.018 Allergy to other foods
CPT/HCPCS: 96361; 96375; 96372; 96374; 99284; 36569; J2550; J0171; J1100; J7050; J7030